=== PATIENT | male | born 1975 | race Caucasian/White ===

== ENCOUNTER 2016-08-01 20:36 | Inpatient (IN) | payer MEDICAID, OTHER ==
[~2016-08-01] VITALS: Ht 167.6 cm; Wt 82.5 kg
[2016-08-01] MEDS ORDERED: SOD CHLORIDE 0.9% 500 ML IV STA (22:11)
[2016-08-01] MEDS ORDERED: morphine 4 MG/ML VIAL IV STA ×2 (22:11→22:30)
[2016-08-01] MEDS ORDERED: ONDANSETRON 4 MG INJ IV STA ×2 (22:11→22:30)
[2016-08-01 23:12] LABS: ADD SCAN DIFF NO
[2016-08-01 23:23] LABS: BASOPHILS % 0.3 % (0.0-2.0); EOSINOPHILS # 0.1 10^3/ul (0.0-0.5); EOSINOPHILS % 1.5 % (0.0-7.0); HEMATOCRIT 39.4 % (42.0-52.0); HEMOGLOBIN 13.1 g/dl (14.0-18.0); LYMPHOCYTES # 2.2 10^3/ul (0.8-2.9); LYMPHOCYTES % 24.9 % (15.0-51.0); MEAN CORPUSCULAR HEMOGLOBIN 28.3 pg (29.0-33.0); MEAN CORPUSCULAR HGB CONC 33.2 g/dl (32.0-37.0); MEAN CORPUSCULAR VOLUME 85.1 fl (82.0-101.0); MONOCYTE # 1.2 10^3/ul (0.3-0.9); MONOCYTES % 13.4 % (0.0-11.0); NEUTROPHIL # 5.1 10^3/ul (1.6-7.5); NEUTROPHILS % 59.4 % (39.0-77.0); PLATELET COUNT 289 10^3/UL (140-415); RED BLOOD COUNT 4.63 10^6/ul (4.70-6.10); RED CELL DISTRIBUTION WIDTH 12.7 % (11.5-14.5); WHITE BLOOD COUNT 8.7 10^3/ul (4.8-10.8)
--- NOTE | 2016-08-01 23:25 | RADRPT ---
PROCEDURE: CT ABDOMEN/PELVIS WITHOUT CONTRAST CLINICAL INDICATION: 41-year-old male with abdominal pain. TECHNIQUE: The study was performed utilizing a GE Whitepagespeed VCT 64-slice CT scanner. Direct axia l sections were obtained through the abdomen and pelvis without the use of intravenous contrast mate rial. Sagittal and coronal reformations were obtained. Automated exposure control and iterative geoffrey nstruction techniques were utilized for this examination. The [facility] CTD/vol = 11.5 mGy; Total Exam DLP = 717.0 mGy-cm. COMPARISON: None. FINDINGS: There is mild scarring within the partially visualized right middle lobe. There is no evidence for significant pleural effusion. The liver has a normal size and contour without focal areas of abnorm al density. No intrahepatic nor extrahepatic biliary ductal dilatation is seen. The gallbladder demo nstrates no wall thickening nor pericholecystic fluid. No biliary stones are evident. The pancreas i s without areas of abnormal attenuation. The spleen is identified and has a normal size without abn ormal density. The adrenal glands are unremarkable. The kidneys are without abnormal density. No hyd roureteronephrosis nor nephroureterolithiasis is evident. The urinary bladder contains urine. There are a few small diverticula within the descending and sigmoid colon without surrounding inflammatory changes. The appendix is visualized and is without abnormal thickening or surrounding inflammatory reaction. There is no significant pelvic free fluid. There is a right pelvic phlebolith noted. There is an enlarged right inguinal soft tissue density measuring approximately 3.9 x 3.6 x 3.5 cm w ith surrounding inflammatory changes. There are additional multiple shotty bilateral inguinal lymph nodes noted. The aortoiliac vessels are without aneurysmal dilatation. The osseous structures are i ntact. IMPRESSION: 1. Minimal descending and sigmoid colon diverticulosis. 2. No CT evidence for appendicitis. 3. Enlarged right inguinal soft tissue density with surrounding inflammatory changes. This is most suggestive of lymphadenopathy. Clinical correlation is necessary. .Ever Stevenson MD, MD Date Time Electronically viewed and signed by .Ever Stevenson MD, MD on 08/01/2016 23:24 .M/
[2016-08-01 23:26] LABS: INR 0.94; PROTIME 12.6 Sec (12.2-14.2)
[2016-08-01 23:27] LABS: ALBUMIN 3.7 g/dl (3.3-4.9); POTASSIUM 4.2 mmol/L (3.5-5.1)
[2016-08-01 23:29] LABS: ALBUMIN/GLOBULIN RATIO 1.08; BILIRUBIN,INDIRECT 0.1 mg/dl (0-1.1); BILIRUBIN,TOTAL 0.1 mg/dl (0.2-1.3); CREATININE 1.17 mg/dl (0.61-1.24); TOTAL PROTEIN 7.1 g/dl (6.1-8.1)
[2016-08-02 00:30] VITALS: TEMP 99.8
--- NOTE | 2016-08-02 00:46 | ERD ---
ER Documentation Chief Complaint Date/Time DATE: 08/02/16 TIME: 00:45 Chief Complaint DX RT GROIN HERNIA AT [place]. NEEDS EVAL FOR SURGERY HPI This is a 41-year-old male with a right groin hernia that is not progressively more painful. Also, the mild fever. No other current complaints. Pain is mild to moderate intensity. Associated nausea. No vomiting. ROS All systems reviewed and are negative except as per history of present illness. PMhx/Soc Medical and Surgical Hx: pt denies Medical Hx, pt denies Surgical Hx Hx Alcohol Use: No Hx Substance Use: No Hx Tobacco Use: No Smoking Status: Never smoker Physical Exam Vitals Vital Signs Date Time Temp Pulse Resp B/P Pulse Ox O2 Delivery O2 Flow Rate FiO2 08/02/16 00:30 99.8 80 18 126/74 99 Room Air 08/01/16 23:13 99.8 81 18 112/65 99 Room Air 08/01/16 20:45 100.4 97 18 137/83 99 Physical Exam Const: [] Head: Atraumatic Eyes: Normal Conjunctiva ENT: Normal External Ears, Nose and Mouth. Neck: Full range of motion..~ No meningismus. Resp: Clear to auscultation bilaterally Cardio: Regular rate and rhythm, no murmurs Abd: Soft, non tender, non distended. Normal bowel sounds Skin: No petechiae or rashes Back: No midline or flank tenderness Ext: No cyanosis, or edema Neur: Awake and alert Psych: Normal Mood and Affect Result Diagram: 08/01/16223308/01/162233 Results 24 hrs Laboratory Tests Test 08/01/16 22:34 Activated Partial Thromboplast Time 34.0Sec Alanine Aminotransferase (ALT/SGPT) 47IU/L Albumin 3.7g/dl Albumin/Globulin Ratio 1.08 Alkaline Phosphatase 83IU/L Anion Gap 15 Aspartate Amino Transf (AST/SGOT) 34IU/L Basophils # 0.010^3/ul Basophils % 0.3% Blood Urea Nitrogen 18mg/dl Calcium Level 9.0mg/dl Carbon Dioxide Level 30mmol/L Chloride Level 101mmol/L Creatinine 1.17mg/dl Direct Bilirubin 0.00mg/dl Eosinophils # 0.110^3/ul Eosinophils % 1.5% Globulin 3.40g/dl Glucose Level 93mg/dl Hematocrit 39.4% Hemoglobin 13.1g/dl INR International Normalized Ratio 0.94 Indirect Bilirubin 0.1mg/dl Lipase 58U/L Lymphocytes # 2.210^3/ul Lymphocytes % 24.9% Mean Corpuscular Hemoglobin 28.3pg Mean Corpuscular Hemoglobin Concent 33.2g/dl Mean Corpuscular Volume 85.1fl Mean Platelet Volume 9.0fl Monocytes # 1.210^3/ul Monocytes % 13.4% Neutrophils # 5.110^3/ul Neutrophils % 59.4% Nucleated Red Blood Cells # 0.010^3/ul Nucleated Red Blood Cells % 0.0/100WBC Platelet Count 93375^3/UL Potassium Level 4.2mmol/L Prothrombin Time 12.6Sec Prothrombin Time Ratio 1.0 Red Blood Count 4.6310^6/ul Red Cell Distribution Width 12.7% Sodium Level 142mmol/L Total Bilirubin 0.1mg/dl Total Protein 7.1g/dl White Blood Count 8.710^3/ul Current Medications Medications (Trade) Dose Ordered Sig/Anastasiya Route PRN Reason Start Time Stop Time Status Last Admin Dose Admin Sodium Chloride (NS) 500 ml @ 500 mls/hr Q1H STAT IV 08/01/16 22:11 08/01/16 23:10 DC 08/01/16 22:40 Morphine Sulfate (morphine) 4 mg ONCE STAT IV 08/01/16 22:11 08/01/16 22:13 DC 08/01/16 22:39 Ondansetron HCl (Zofran Inj) 4 mg ONCE STAT IV 08/01/16 22:11 08/01/16 22:13 DC 08/01/16 22:39 Morphine Sulfate (morphine) 4 mg ONCE STAT IV 08/01/16 22:30 08/01/16 22:31 DC Ondansetron HCl (Zofran Inj) 4 mg ONCE STAT IV 08/01/16 22:30 08/01/16 22:31 DC Procedures/MDM Medical decision-making: Patient as well as be early incarcerated inguinal hernia likely omentum. Patient will be admitted to hospitalist. Dr. Abdalla from surgery will consult. Departure Diagnosis: Primary Impression: Incarcerated inguinal hernia Condition: Serious AJIT CARTWRIGHT Aug 02, 2016 00:46
[2016-08-02 01:01] VITALS: Ht 167.6 cm; Wt 82.5 kg
[2016-08-02 01:12] VITALS: BP 139/76; PULSE 92; RESP 18
--- NOTE | 2016-08-02 01:23 | HP ---
Date/Time of Note Date/Time of Note DATE: 08/02/16 TIME: 01:22 Assessment/Plan VTE Prophylaxis VTE Prophylaxis Intervention: ambulation Lines/Catheters IV [facility] Saline Lock Urinary Cath still in place: No Assessment/Plan Assessment/Plan 1) Right Inguinal Mass - Diagnosed as an Incarcerated Inguinal Hernia, but may be an enlarged lymph node instead. Consider a infection as well as an incarcerated hernia. - Admit to Med Surg - NPO - CONSULT: General Surgery. Dr. Abdalla already notified by the ER - Add on Labs: UA, Urine Culture, GC/Chlamydia from Urine 2) Fever and Chills 3) Dysuria HPI/ROS Admit Date/Time Admit Date/Time Aug 02, 2016 at 00:22 Hx of Present Illness Hernia ROS Patient presented to the ED with a diagnosis of a right inguinal hernia made at [facility] on 07/27/16. They did not have a surgeon, so it seems they recommend he come here for treatment. Tonight, he had a CT of abdomen and pelvis and some blood work was done. Dr. Abdalla was consulted from the ED and he will see patient this morning. I saw patient for my H & P, and confirmed he had a tender mass in his right inguinal region. I submitted my orders and then looked at the CT report to include it in my note. The report does not mention evidence of a hernia. It mentions an enlarged right inguinal soft tissue density measuring approximately 3.9 x 3.6 x 3.5 cm with surrounding inflammatory changes and shotty bilateral inguinal lymphadenopathy . . . "most suggestive of lymphadenopathy". In my original visit with the patient, I asked if he had been sick recently, and he said "no". He didn't have any complaints other than the painful lump in the right groin, mild nausea with the pain and some general abdominal tenderness ( see PE for details) on my exam. With this new information, I went back and asked more questions and did a more thorough exam. Patient has been having this lump for 2 months. It has become painful over the past 2 weeks. In the last week, he has had shaking fevers and chills, Headache, nausea and moderate to severe body aches. He has also had burning with urination this week. He has not seen any blood. No penile lesions or urethral discharge. No pain in his testicles. No new sexual partner, only his . He felt so bad on 07/31/16, that he did not go to work. Patient denies ever having an STI. Constitutional: chills, fatigue (Extremely tired since 07/31/16), febrile Eyes: no complaints ENT: no complaints Respiratory: no complaints Cardiovascular: no complaints Gastrointestinal: decreased appetite, nausea, No diarrhea, No vomiting Genitourinary: dysuria, No discharge, No flank pain, No hematuria Musculoskeletal: No back pain, No neck pain Skin: No pruritis, No rash, No skin lesions Neurologic: headache, No dizziness, No focal-weakness, No syncope Endocrine: No polydypsia, No polyuria Immunologic: No immunodeficiency, No pruritis, No rhinitis PMH/Family/Social Past Medical History Medical History: no pertinent history Past Surgical History Past Surgical Hx: no surgical history Family History Significant Family History: no pertinent family hx Social History Alcohol Use: none Smoking Status: Never smoker Drug Use: none Exam/Review of Systems Vital Signs Vitals Vital Signs Date Time Temp Pulse Resp B/P Pulse Ox O2 Delivery O2 Flow Rate FiO2 08/02/16 01:12 98.3 92 18 139/76 98 Room Air Exam Constitutional: alert, oriented, well developed Psych: no complaints Head: atraumatic, normocephalic Eyes: EOMI, nl sclera ENMT: mucosa pink and moist, nl external ears & nose, nl lips & teeth Neck: non-tender, supple Respiratory: clear to auscultation, normal air movement Cardiovascular: regular rate and rhythm Gastrointestinal: bowel sounds (Normoactive), nl liver, spleen, other (No CVA tenderness), soft, tender (May be related to the pain/tenderness in Right Groin region.), No distended, No firm, No hepatomegaly, No rebound or guarding Genitourinary - Male: nl penis, nl scrotum, other (Thestes normal cord palpated and followed to inguinal ring. Patient coughed), No discharge Musculoskeletal: muscle tone (Normal), nl extremities to inspection Extremities: normal pulses, No edema Neurological: CROSSING TENDER II-XII intact (grossly), nl mental status, nl speech, nl strength Skin: nl turgor (Normal moisture and temperature. No rash.) Lymph: enlarged (Right inguinal lymphadenopathy, very tender. ) Labs Result Diagram: 08/01/16223308/01/162233 Procedures Procedures Laboratory Tests Test 08/01/16 22:34 Activated Partial Thromboplast Time 34.0Sec Alanine Aminotransferase (ALT/SGPT) 47IU/L Albumin 3.7g/dl Albumin/Globulin Ratio 1.08 Alkaline Phosphatase 83IU/L Anion Gap 15 Aspartate Amino Transf (AST/SGOT) 34IU/L Basophils # 0.010^3/ul Basophils % 0.3% Blood Urea Nitrogen 18mg/dl Calcium Level 9.0mg/dl Carbon Dioxide Level 30mmol/L Chloride Level 101mmol/L Creatinine 1.17mg/dl Direct Bilirubin 0.00mg/dl Eosinophils # 0.110^3/ul Eosinophils % 1.5% Globulin 3.40g/dl Glucose Level 93mg/dl Hematocrit 39.4% Hemoglobin 13.1g/dl INR International Normalized Ratio 0.94 Indirect Bilirubin 0.1mg/dl Lipase 58U/L Lymphocytes # 2.210^3/ul Lymphocytes % 24.9% Mean Corpuscular Hemoglobin 28.3pg Mean Corpuscular Hemoglobin Concent 33.2g/dl Mean Corpuscular Volume 85.1fl Mean Platelet Volume 9.0fl Monocytes # 1.210^3/ul Monocytes % 13.4% Neutrophils # 5.110^3/ul Neutrophils % 59.4% Nucleated Red Blood Cells # 0.010^3/ul Nucleated Red Blood Cells % 0.0/100WBC Platelet Count 96247^3/UL Potassium Level 4.2mmol/L Prothrombin Time 12.6Sec Prothrombin Time Ratio 1.0 Red Blood Count 4.6310^6/ul Red Cell Distribution Width 12.7% Sodium Level 142mmol/L Total Bilirubin 0.1mg/dl Total Protein 7.1g/dl White Blood Count 8.710^3/ul PROCEDURE: CT ABDOMEN/PELVIS WITHOUT CONTRAST CLINICAL INDICATION: 41-year-old male with abdominal pain. COMPARISON: None. FINDINGS: There is mild scarring within the partially visualized right middle lobe. There is no evidence for significant pleural effusion. The liver has a normal size and contour without focal areas of abnormal density. No intrahepatic nor extrahepatic biliary ductal dilatation is seen. The gallbladder demonstrates no wall thickening nor pericholecystic fluid. No biliary stones are evident. The pancreas is without areas of abnormal attenuation. The spleen is identified and has a normal size without abnormal density. The adrenal glands are unremarkable. The kidneys are without abnormal density. No hydroureteronephrosis nor nephroureterolithiasis is evident. The urinary bladder contains urine. There are a few small diverticula within the descending and sigmoid colon without surrounding inflammatory changes. The appendix is visualized and is without abnormal thickening or surrounding inflammatory reaction. There is no significant pelvic free fluid. There is a right pelvic phlebolith noted. There is an enlarged right inguinal soft tissue density measuring approximately 3.9 x 3.6 x 3.5 cm with surrounding inflammatory changes. There are additional multiple shotty bilateral inguinal lymph nodes noted. The aortoiliac vessels are without aneurysmal dilatation. The osseous structures are intact. IMPRESSION: 1. Minimal descending and sigmoid colon diverticulosis. 2. No CT evidence for appendicitis. 3. Enlarged right inguinal soft tissue density with surrounding inflammatory changes. This is most suggestive of lymphadenopathy. Clinical correlation is necessary. DOMINIC MARTINEZ DO Aug 02, 2016 01:22
[2016-08-02] MEDS ORDERED: NACL 0.9% 3 ML SYG IV SCH (01:30)
[2016-08-02] MEDS ORDERED: ONDANSETRON 4 MG INJ IV PRN (01:30)
[2016-08-02] MEDS: morphine 2 MG INJ IV PRN ×2 (01:53→20:59)
[2016-08-02] MEDS: SOD CHLORIDE 0.9% 1,000 ML IV SCH ×3 (01:54→14:58)
[2016-08-02 02:00] VITALS: BP 139/76; RESP 20
[2016-08-02 07:17] VITALS: BP 126/71; RESP 20
[2016-08-02 07:32] LABS: ADD UMIC NO; URINE BILIRUBIN (Dip) NEGATIVE (NEGATIVE); URINE BLOOD (Dip) NEGATIVE (NEGATIVE); URINE COLOR LT. YELLOW (YELLOW); URINE GLUCOSE (Dip) NEGATIVE (NEGATIVE); URINE KETONES (Dip) NEGATIVE (NEGATIVE); URINE LEUKOCYTE ESTERASE (Dip) NEGATIVE (NEGATIVE); URINE NITRITE (Dip) NEGATIVE (NEGATIVE); URINE TOTAL PROTEIN (Dip) NEGATIVE (NEGATIVE); URINE UROBILINOGEN (Dip) 0.2 E.U./dL (0.1-1.0)
[2016-08-02 19:31] VITALS: BP 131/81; RESP 16
[2016-08-03] MEDS: SOD CHLORIDE 0.9% 1,000 ML IV SCH ×4 (00:57→23:37)
[2016-08-03 06:10] LABS: ADD SCAN DIFF NO
[2016-08-03 06:32] LABS: BASOPHILS % 0.4 % (0.0-2.0); EOSINOPHILS # 0.1 10^3/ul (0.0-0.5); EOSINOPHILS % 1.1 % (0.0-7.0); HEMATOCRIT 38.5 % (42.0-52.0); HEMOGLOBIN 12.7 g/dl (14.0-18.0); LYMPHOCYTES % 20.5 % (15.0-51.0); MEAN CORPUSCULAR HEMOGLOBIN 28.3 pg (29.0-33.0); MEAN CORPUSCULAR VOLUME 85.7 fl (82.0-101.0); MEAN PLATELET VOLUME 8.8 fl (7.4-10.4); MONOCYTE # 1.2 10^3/ul (0.3-0.9); MONOCYTES % 12.3 % (0.0-11.0); NEUTROPHIL # 6.5 10^3/ul (1.6-7.5); NEUTROPHILS % 65.3 % (39.0-77.0); PLATELET COUNT 288 10^3/UL (140-415); RED BLOOD COUNT 4.49 10^6/ul (4.70-6.10); RED CELL DISTRIBUTION WIDTH 12.4 % (11.5-14.5)
[2016-08-03 06:37] LABS: POTASSIUM 4.3 mmol/L (3.5-5.1)
[2016-08-03 06:39] LABS: CREATININE 0.88 mg/dl (0.61-1.24)
[2016-08-03 06:40] LABS: CALCIUM 8.5 mg/dl (8.4-10.2); MAGNESIUM 2.3 mg/dl (1.7-2.5)
[2016-08-03 07:15] VITALS: BP 133/72; RESP 20
[2016-08-03] MEDS: ACETAMINOPHEN 325 MG TAB PO PRN ×2 (13:22→22:23)
[2016-08-03] MEDS ORDERED: LIDOCAINE 1% (MPF) 5 ML VIAL ONE (14:24)
--- NOTE | 2016-08-03 15:37 | RADRPT ---
PROCEDURE: Ultrasound guided right inguinal lymph node biopsy. CLINICAL INDICATION: Enlarged right inguinal lymph node. TECHNIQUE: Prior to the procedure, informed consent was obtained. Risks including bleeding and in fection were explained to the patient. The patient understood and was willing to proceed. A proced ural pause was performed. The patient's name, date of , and procedure to be performed were fani ified. Using local anesthetic, sterile technique and ultrasound guidance, an 18-gauge automated core biopsy needle was used to biopsy the mass in the right inguinal region. Multiple passes were made. Adequ ate tissue was obtained according to the pathologist present during the biopsy. The patient tolerat ed the procedure well. COMPARISON: CT scan of the abdomen and pelvis dated 08/01/2016 which demonstrated an enlarged lymp h node in the right inguinal region. FINDINGS: Images demonstrate the right inguinal lymphadenopathy and subsequent images demonstrate the needle w ithin the mass in the right inguinal region. IMPRESSION: 1. Satisfactory ultrasound-guided right inguinal lymph node biopsy. RPTAT: QQ .Lawson Bernardo MD, MD Date Time Electronically viewed and signed by .Lawson Bernardo MD, on 08/03/2016 15:37 .R/
--- NOTE | 2016-08-03 16:45 | PN ---
Date/Time of Note Date/Time of Note DATE: 08/03/16 TIME: 16:41 Assessment/Plan VTE Prophylaxis VTE Prophylaxis Intervention: ambulation Lines/Catheters IV [facility]ter Type (from [facility]): Peripheral IV Urinary Cath still in place: No Assessment/Plan Chief Complaint/Hosp Course 1) Right Inguinal Mass Surgery does not feel that the mass is a hernia and has recommended biopsy for evaluation of lymphoma, patient is status post ultrasound guided biopsy today 2) Fever and Chills Patient is afebrile today 3) Dysuria UA is negative, RPR is nonreactive Prophylaxis: Ambulation Problems: Subjective 24 Hr Interval Summary Constitutional: no complaints Exam/Review of Systems Vital Signs Vitals Vital Signs Date Time Temp Pulse Resp B/P Pulse Ox O2 Delivery O2 Flow Rate FiO2 08/03/16 07:15 98.0 91 20 133/72 99 08/02/16 01:12 Room Air Intake and Output 08/02/16 08/02/16 08/03/16 15:00 23:00 07:00 Intake Total 600 ml 200 ml 1200 ml Output Total 1950 ml 1850 ml Balance 600 ml -1750 ml -650 ml Exam Constitutional: alert, oriented Respiratory: clear to auscultation Cardiovascular: regular rate and rhythm Gastrointestinal: soft, No distended Musculoskeletal: nl extremities to inspection Results Result Diagram: 08/03/16 0535 08/03/16 0535 Results 24 hrs Laboratory Tests Test 08/03/16 05:35 Anion Gap 15 Basophils # 0.0 Basophils % 0.4 Blood Urea Nitrogen 14 Calcium Level 8.5 Carbon Dioxide Level 28 Chloride Level 104 Creatinine 0.88 Eosinophils # 0.1 Eosinophils % 1.1 Glucose Level 96 Hematocrit 38.5 L Hemoglobin 12.7 L Hemoglobin A1c 5.8 Lymphocytes # 2.0 Lymphocytes % 20.5 Magnesium Level 2.3 Mean Corpuscular Hemoglobin 28.3 L Mean Corpuscular Hemoglobin Concent 33.0 Mean Corpuscular Volume 85.7 Mean Platelet Volume 8.8 Monocytes # 1.2 H Monocytes % 12.3 H Neutrophils # 6.5 Neutrophils % 65.3 Nucleated Red Blood Cells # 0.0 Nucleated Red Blood Cells % 0.0 Platelet Count 288 Potassium Level 4.3 Red Blood Count 4.49 L Red Cell Distribution Width 12.4 Sodium Level 143 White Blood Count 10.0 Medications Medications Current Medications Sodium Chloride (NS) 1,000 ml @ 100 mls/hr Q10H IV Last administered on 12:36; Admin Dose 100 MLS/HR; Start 08/02/16 at 01:23 Ondansetron HCl (Zofran Inj) 4 mg Q6H PRN IV NAUSEA AND/OR VOMITING; Start at 01:30 Morphine Sulfate (morphine) 2 mg Q4H PRN IV SEVERE PAIN LEVEL 7-10 Last administered on 08/02/16 20:59; Admin Dose 2 MG; Start 08/02/16 at 01:30 Acetaminophen (Tylenol Tab) 650 mg Q6H PRN PO PAIN AND OR ELEVATED TEMP Last administered on 08/03/16 13:22; Admin Dose 650 MG; Start 08/03/16 at 11:00 ANTONIO WONG Aug 03, 2016 16:45
[2016-08-03 19:00] VITALS: BP 117/79; RESP 18
[2016-08-03] MEDS: morphine 2 MG INJ IV PRN (19:08)
[2016-08-03] MEDS: HYDROCODONE/APAP (5/325) TAB PO PRN (23:32)
[2016-08-04] MEDS: HYDROCODONE/APAP (5/325) TAB PO PRN ×3 (05:20→21:46)
[2016-08-04 07:51] VITALS: BP 116/71; RESP 18
[2016-08-04] MEDS: SOD CHLORIDE 0.9% 1,000 ML IV SCH ×3 (09:45→21:46)
--- NOTE | 2016-08-04 14:58 | PN ---
Date/Time of Note Date/Time of Note DATE: 08/04/16 TIME: 14:56 Assessment/Plan VTE Prophylaxis VTE Prophylaxis Intervention: ambulation Lines/Catheters IV [facility] Peripheral IV Urinary Cath still in place: No Assessment/Plan Chief Complaint/Hosp Course 1) Right Inguinal Mass Surgery does not feel that the mass is a hernia and has recommended biopsy for evaluation of lymphoma, patient is status post ultrasound guided biopsy yesterday Oncology consultation placed 2) Fever and Chills-resolved Patient is afebrile today 3) Dysuria UA is negative, RPR is nonreactive Prophylaxis: Ambulation Problems: Subjective 24 Hr Interval Summary Constitutional: no complaints Exam/Review of Systems Vital Signs Vitals Vital Signs Date Time Temp Pulse Resp B/P Pulse Ox O2 Delivery O2 Flow Rate FiO2 08/04/16 07:51 98.8 82 18 116/71 100 08/02/16 01:12 Room Air Intake and Output 08/03/16 08/03/16 08/04/16 15:00 23:00 07:00 Intake Total 1000 ml 1250 ml 1770 ml Output Total 1125 ml 140 ml Balance 1000 ml 125 ml 1630 ml Exam Constitutional: alert Respiratory: clear to auscultation Cardiovascular: regular rate and rhythm Gastrointestinal: soft, No distended Musculoskeletal: nl extremities to inspection Results Result Diagram: 08/03/16 0535 08/03/16 0535 Medications Medications Current Medications Sodium Chloride (NS) 1,000 ml @ 100 mls/hr Q10H IV Last administered on 09:45; Admin Dose 100 MLS/HR; Start 08/02/16 at 01:23 Ondansetron HCl (Zofran Inj) 4 mg Q6H PRN IV NAUSEA AND/OR VOMITING; Start at 01:30 Morphine Sulfate (morphine) 2 mg Q4H PRN IV SEVERE PAIN LEVEL 7-10 Last administered on 08/03/16 19:08; Admin Dose 2 MG; Start 08/02/16 at 01:30 Acetaminophen (Tylenol Tab) 650 mg Q6H PRN PO PAIN AND OR ELEVATED TEMP Last administered on 08/03/16 22:23; Admin Dose 650 MG; Start 08/03/16 at 11:00 Acetaminophen/ Hydrocodone Bitart ([place] (5/325)) 1 tab Q6H PRN PO MODERATE PAIN (4-6/10) Last administered on 08/04/16t 12:28; Admin Dose 1 TAB; Start at 23:30 ANTONIO WONG Aug 04, 2016 14:58
--- NOTE | 2016-08-04 15:06 | CONS ---
Date/Time of Note Date/Time of Note DATE: 08/04/16 TIME: 14:58 Assessment/Plan Assessment/Plan Chief Complaint/Hosp Course The patient is a 41 year old male with enlarged right inguinal soft tissue density with inflammatory changes suggesting LAD, now s/p US guided core biopsy of right inguinal lymph node on 08/03/16 with results pending. - f/u final path, pending, will likely have some results tomorrow - will check LDH, uric acid, HIV, Hepatitis panel - will obtain CT chest, with outpatient PET scan - will f/u path and make recommendations regarding further workup (may include bone marrow biopsy, echo, etc) and treatment Will continue to follow Problems: Consultation Date/Type/Reason Admit Date/Time Aug 02, 2016 at 00:22 Date of Consultation: Aug 04, 2016 Type of Consultation: Hematology/Oncology Hx of Present Illness The patient is a 41 year old male who presented to the ED with a diagnosis of a right inguinal hernia made at [facility] [place] on 07/27/16. They did not have a surgeon, so it seems they recommend he come here for treatment. Here he had a CT of abdomen and pelvis that showed enlarged right inguinal soft tissue density with inflammatory changes suggesting LAD, now s/p US guided core biopsy of right inguinal lymph node on 08/03/16 with results pending. Patient has been having this lump for 2 months. It has become painful over the past 2 weeks. In the last week, he has had shaking fevers and chills, headache/ back ache, nausea and moderate to severe body aches and dysuria. He endorses fevers and night sweats, unknown whether he has had weight loss. He states that he is still able to ambulate at home and perform his ADL's. Constitutional: no complaints Eyes: no complaints ENT: no complaints Respiratory: no complaints Cardiovascular: no complaints Gastrointestinal: decreased appetite, nausea, No diarrhea, No vomiting Genitourinary: dysuria, No discharge, No flank pain, No hematuria Musculoskeletal: No back pain, No neck pain Skin: No pruritis, No rash, No skin lesions Neurologic: headache, No dizziness, No focal-weakness, No syncope Psychological: no complaints Immunologic: No immunodeficiency, No pruritis, No rhinitis Past Medical History Medical History: no pertinent history Past Surgical History Past Surgical Hx: no surgical history Family History Significant Family History: no pertinent family hx Social History Alcohol Use: none Smoking Status: Never smoker Drug Use: none Exam/Review of Systems Vital Signs Vitals Vital Signs Date Time Temp Pulse Resp B/P Pulse Ox O2 Delivery O2 Flow Rate FiO2 08/04/16 07:51 98.8 82 18 116/71 100 08/02/16 01:12 Room Air Intake and Output 08/03/16 08/03/16 08/04/16 15:00 23:00 07:00 Intake Total 1000 ml 1250 ml 1770 ml Output Total 1125 ml 140 ml Balance 1000 ml 125 ml 1630 ml Exam Constitutional: alert, oriented Psych: other (diaphoretic) Head: normocephalic Neck: supple Respiratory: clear to auscultation Cardiovascular: regular rate and rhythm Gastrointestinal: non-tender, soft Musculoskeletal: nl extremities to inspection Neurological: JACK TAMP OPERATOR II-XII intact Lymph: enlarged (large 3 x 4 cm painful inguinal lymph node, no other palpable LAD) Results Result Diagram: 08/03/16 0535 08/03/16 0535 Medications Medications Current Medications Sodium Chloride (NS) 1,000 ml @ 100 mls/hr Q10H IV Last administered on 09:45; Admin Dose 100 MLS/HR; Start 08/02/16 at 01:23 Ondansetron HCl (Zofran Inj) 4 mg Q6H PRN IV NAUSEA AND/OR VOMITING; Start at 01:30 Morphine Sulfate (morphine) 2 mg Q4H PRN IV SEVERE PAIN LEVEL 7-10 Last administered on 08/03/16 19:08; Admin Dose 2 MG; Start 08/02/16 at 01:30 Acetaminophen (Tylenol Tab) 650 mg Q6H PRN PO PAIN AND OR ELEVATED TEMP Last administered on 08/03/16 22:23; Admin Dose 650 MG; Start 08/03/16 at 11:00 Acetaminophen/ Hydrocodone Bitart ([place] (5/325)) 1 tab Q6H PRN PO MODERATE PAIN (4-6/10) Last administered on 08/04/16 12:28; Admin Dose 1 TAB; Start at 23:30 DAKOTAH PRIDE MD Aug 04, 2016 15:06
[2016-08-04] MEDS: ACETAMINOPHEN 325 MG TAB PO PRN (17:26)
[2016-08-04 19:46] VITALS: BP 125/73; RESP 18
[2016-08-05] MEDS: ACETAMINOPHEN 325 MG TAB PO PRN ×4 (00:27→19:41)
[2016-08-05] MEDS: SOD CHLORIDE 0.9% 1,000 ML IV SCH ×2 (05:39→15:45)
[2016-08-05 05:43] LABS: ADD SCAN DIFF NO; HAAIG REFLEX REFLEX FILED
[2016-08-05 05:52] LABS: BASOPHILS % 0.2 % (0.0-2.0); EOSINOPHILS # 0.2 10^3/ul (0.0-0.5); EOSINOPHILS % 1.8 % (0.0-7.0); HEMATOCRIT 37.9 % (42.0-52.0); HEMOGLOBIN 12.7 g/dl (14.0-18.0); LYMPHOCYTES # 1.8 10^3/ul (0.8-2.9); LYMPHOCYTES % 19.9 % (15.0-51.0); MEAN CORPUSCULAR HEMOGLOBIN 28.2 pg (29.0-33.0); MEAN CORPUSCULAR HGB CONC 33.5 g/dl (32.0-37.0); MEAN CORPUSCULAR VOLUME 84.2 fl (82.0-101.0); MEAN PLATELET VOLUME 8.5 fl (7.4-10.4); MONOCYTE # 1.1 10^3/ul (0.3-0.9); MONOCYTES % 12.6 % (0.0-11.0); NEUTROPHIL # 5.7 10^3/ul (1.6-7.5); PLATELET COUNT 327 10^3/UL (140-415); RED CELL DISTRIBUTION WIDTH 12.1 % (11.5-14.5); WHITE BLOOD COUNT 8.8 10^3/ul (4.8-10.8)
[2016-08-05 05:58] LABS: ALBUMIN 3.3 g/dl (3.3-4.9)
[2016-08-05 05:59] LABS: POTASSIUM 4.2 mmol/L (3.5-5.1)
[2016-08-05 06:01] LABS: ALBUMIN/GLOBULIN RATIO 0.94; BILIRUBIN,INDIRECT 0.1 mg/dl (0-1.1); BILIRUBIN,TOTAL 0.1 mg/dl (0.2-1.3); CREATININE 0.81 mg/dl (0.61-1.24); TOTAL PROTEIN 6.8 g/dl (6.1-8.1)
[2016-08-05 06:02] LABS: CALCIUM 8.5 mg/dl (8.4-10.2); PHOSPHORUS 4.3 mg/dl (2.5-4.9); URIC ACID 4.3 mg/dl (3.1-7.9)
[2016-08-05 07:10] LABS: HEPATITIS B CORE ANTIBODY NEGATIVE (NEGATIVE)
[2016-08-05 07:30] VITALS: BP 122/74; RESP 24
--- NOTE | 2016-08-05 09:17 | RADRPT ---
PROCEDURE: CT chest without contrast. CLINICAL INDICATION: Cough, chest pain TECHNIQUE: CT scan of the chest without contrast was performed on a multi-slice CT scanner. The p atient was scanned without administration of intravenous contrast. Coronal and sagittal reformatted images were obtained from the axial source images. DLP vol 536.2 mGy CTDI 15.3 mGy-cm COMPARISON: None. FINDINGS: There is a mildly enlarged left axillary lymph node that measures up to 3.5 x 1.0 cm in diameter wit h the visible fatty hilar component. There may lymph nodes within the thorax demonstrate no signifi cant thickening or enlargement. Trace bilateral subpleural scarring is seen in the lungs. There is no lung consolidation or pleural effusion or pneumothorax. The airways are patent. There is a 4 mm left lower lobe pulmonary nodul e on series 4, image 91. The vascular structures of the thorax are grossly unremarkable. There are no enlarged axillary or me diastinal lymph nodes. Upper abdominal structures are stable from prior CT would hepatosplenomegaly partially visualized. D egenerative changes are seen within the thoracic spine and shoulders with no acute osseous abnormali ty. IMPRESSION: Mildly enlarged left axillary lymph node is seen with no other enlarged lymph nodes in the thorax. Left lower lobe 4 mm pulmonary nodule can be reassessed with followup CT after 6 months. Otherwise no acute pulmonary process. Hepatosplenomegaly. RPTAT: AA .Junior Basilio MD, MD Date Time Electronically viewed and signed by .Junior Basilio MD, MD on 08/05/2016 09:17 .Richard/
--- NOTE | 2016-08-05 15:24 | PN ---
Date/Time of Note Date/Time of Note DATE: 08/05/16 TIME: 15:20 Assessment/Plan VTE Prophylaxis VTE Prophylaxis Intervention: ambulation Lines/Catheters IV Catheter Type (from [facility]): Peripheral IV Urinary Cath still in place: No Assessment/Plan Chief Complaint/Hosp Course 1) Right Inguinal Mass Surgery does not feel that the mass is a hernia and has recommended biopsy for evaluation of lymphoma, patient is status post ultrasound guided biopsy, follow- up on pathology Oncology consultation appreciated CT chest shows a mildly enlarged left axillary lymph node 2) Fever and Chills possibly secondary to an underlying lymphoma, there is no evidence of an infection at this time Patient was having low-grade fevers overnight 3) Dysuria UA is negative, RPR is nonreactive Prophylaxis: Ambulation Problems: Subjective 24 Hr Interval Summary Constitutional: no complaints Exam/Review of Systems Vital Signs Vitals Vital Signs Date Time Temp Pulse Resp B/P Pulse Ox O2 Delivery O2 Flow Rate FiO2 08/05/16 09:30 98.7 08/05/16 07:30 86 24 122/74 98 08/02/16 01:12 Room Air Intake and Output 08/04/16 08/04/16 08/05/16 15:00 23:00 07:00 Intake Total 450 ml 2175 ml 1425 ml Output Total 1000 ml 1100 ml Balance 450 ml 1175 ml 325 ml Exam Constitutional: alert, oriented Respiratory: clear to auscultation Cardiovascular: regular rate and rhythm Gastrointestinal: soft, No distended Musculoskeletal: nl extremities to inspection Results Result Diagram: 08/05/16 0510 08/05/16 0510 Results 24 hrs Laboratory Tests Test 08/05/16 05:10 Alanine Aminotransferase (ALT/SGPT) 34 Albumin 3.3 Albumin/Globulin Ratio 0.94 Alkaline Phosphatase 74 Anion Gap 13 Aspartate Amino Transf (AST/SGOT) 22 Basophils # 0.0 Basophils % 0.2 Blood Urea Nitrogen 9 Calcium Level 8.5 Carbon Dioxide Level 29 Chloride Level 101 Creatinine 0.81 Direct Bilirubin 0.00 Eosinophils # 0.2 Eosinophils % 1.8 Globulin 3.50 H Glucose Level 101 HIV (1&2) Antibody NEGATIVE Hematocrit 37.9 L Hemoglobin 12.7 L Hepatitis B Core Total Antibody NEGATIVE Hepatitis B Surface Antigen NEGATIVE Hepatitis C Antibody NEGATIVE Indirect Bilirubin 0.1 Lactate Dehydrogenase 575 Lymphocytes # 1.8 Lymphocytes % 19.9 Mean Corpuscular Hemoglobin 28.2 L Mean Corpuscular Hemoglobin Concent 33.5 Mean Corpuscular Volume 84.2 Mean Platelet Volume 8.5 Monocytes # 1.1 H Monocytes % 12.6 H Neutrophils # 5.7 Neutrophils % 65.0 Nucleated Red Blood Cells # 0.0 Nucleated Red Blood Cells % 0.0 Phosphorus Level 4.3 Platelet Count 327 Potassium Level 4.2 Red Blood Count 4.50 L Red Cell Distribution Width 12.1 Sodium Level 139 Total Bilirubin 0.1 L Total Protein 6.8 Uric Acid 4.3 White Blood Count 8.8 Medications Medications Current Medications Sodium Chloride (NS) 1,000 ml @ 100 mls/hr Q10H IV Last administered on 05:39; Admin Dose 100 MLS/HR; Start 08/02/16 at 01:23 Ondansetron HCl (Zofran Inj) 4 mg Q6H PRN IV NAUSEA AND/OR VOMITING; Start at 01:30 Morphine Sulfate (morphine) 2 mg Q4H PRN IV SEVERE PAIN LEVEL 7-10 Last administered on 08/03/16 19:08; Admin Dose 2 MG; Start 08/02/16 at 01:30 Acetaminophen (Tylenol Tab) 650 mg Q6H PRN PO PAIN AND OR ELEVATED TEMP Last administered on 08/05/16 12:45; Admin Dose 650 MG; Start 08/03/16 at 11:00 Acetaminophen/ Hydrocodone Bitart ([place] (5/325)) 1 tab Q6H PRN PO MODERATE PAIN (4-6/10) Last administered on 08/04/16 21:46; Admin Dose 1 TAB; Start at 23:30 ANTONIO WONG Aug 05, 2016 15:23
--- NOTE | 2016-08-05 16:58 | CONS ---
Date/Time of Note Date/Time of Note DATE: 08/05/16 TIME: 16:55 Assessment/Plan Assessment/Plan Chief Complaint/Hosp Course The patient is a 41 year old male with enlarged right inguinal soft tissue density with inflammatory changes suggesting LAD, now s/p US guided core biopsy of right inguinal lymph node on 08/03/16 with results pending. - f/u final path, prelim path per Dr. Higuera was benign, with 1 poorly formed granuloma with necrosis with flow cytometry negative for immunophenotypic abnormality though paucicellular specimen, pending immunostains which will result tomorrow. No evidence of lymphoma at this time. - LDH normal at 575, uric acid 4.3, HIV and hepatitis negative - CT chest 08/04/16shows mildly enlarged left axillary lymph node that measures up to 3.5 x 1.0 cm in diameter with the visible fatty hilar component. There may lymph nodes within the thorax demonstrate no significant thickening or enlargement. Follow up LLL 4 mm pulmonary nodule in 6 months. - follow up final path, consider outpatient PET and/or repeat biopsy Will continue to follow Problems: Consultation Date/Type/Reason Admit Date/Time Aug 02, 2016 at 00:22 Initial Consult Date 08/04/16 Type of Consultation: Hematology/Oncology 24 HR Interval Summary Free Text/Dictation Patient states that he has chills but overall feels better today with less sweats, constipation and resolution of dysuria. Exam/Review of Systems Vital Signs Vitals Vital Signs Date Time Temp Pulse Resp B/P Pulse Ox O2 Delivery O2 Flow Rate FiO2 08/05/16 09:30 98.7 08/05/16 07:30 86 24 122/74 98 08/02/16 01:12 Room Air Intake and Output 08/04/16 08/04/16 08/05/16 15:00 23:00 07:00 Intake Total 450 ml 2175 ml 1425 ml Output Total 1000 ml 1100 ml Balance 450 ml 1175 ml 325 ml Exam Constitutional: alert, oriented Psych: other (diaphoretic) Head: normocephalic Neck: supple Respiratory: clear to auscultation Cardiovascular: regular rate and rhythm Gastrointestinal: non-tender, soft Musculoskeletal: nl extremities to inspection 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 intact Lymph: enlarged (large 3 x 4 cm painful inguinal lymph node, no other palpable LAD) Results Result Diagram: 08/05/16 0510 08/05/16 0510 Results 24 hrs Laboratory Tests Test 08/05/16 05:10 Alanine Aminotransferase (ALT/SGPT) 34 Albumin 3.3 Albumin/Globulin Ratio 0.94 Alkaline Phosphatase 74 Anion Gap 13 Aspartate Amino Transf (AST/SGOT) 22 Basophils # 0.0 Basophils % 0.2 Blood Urea Nitrogen 9 Calcium Level 8.5 Carbon Dioxide Level 29 Chloride Level 101 Creatinine 0.81 Direct Bilirubin 0.00 Eosinophils # 0.2 Eosinophils % 1.8 Globulin 3.50 H Glucose Level 101 HIV (1&2) Antibody NEGATIVE Hematocrit 37.9 L Hemoglobin 12.7 L Hepatitis B Core Total Antibody NEGATIVE Hepatitis B Surface Antigen NEGATIVE Hepatitis C Antibody NEGATIVE Indirect Bilirubin 0.1 Lactate Dehydrogenase 575 Lymphocytes # 1.8 Lymphocytes % 19.9 Mean Corpuscular Hemoglobin 28.2 L Mean Corpuscular Hemoglobin Concent 33.5 Mean Corpuscular Volume 84.2 Mean Platelet Volume 8.5 Monocytes # 1.1 H Monocytes % 12.6 H Neutrophils # 5.7 Neutrophils % 65.0 Nucleated Red Blood Cells # 0.0 Nucleated Red Blood Cells % 0.0 Phosphorus Level 4.3 Platelet Count 327 Potassium Level 4.2 Red Blood Count 4.50 L Red Cell Distribution Width 12.1 Sodium Level 139 Total Bilirubin 0.1 L Total Protein 6.8 Uric Acid 4.3 White Blood Count 8.8 Medications Medications Current Medications Sodium Chloride (NS) 1,000 ml @ 100 mls/hr Q10H IV Last administered on 15:45; Admin Dose 100 MLS/HR; Start 08/02/16 at 01:23 Ondansetron HCl (Zofran Inj) 4 mg Q6H PRN IV NAUSEA AND/OR VOMITING; Start at 01:30 Morphine Sulfate (morphine) 2 mg Q4H PRN IV SEVERE PAIN LEVEL 7-10 Last administered on 08/03/16 19:08; Admin Dose 2 MG; Start 08/02/16 at 01:30 Acetaminophen (Tylenol Tab) 650 mg Q6H PRN PO PAIN AND OR ELEVATED TEMP Last administered on 08/05/16 12:45; Admin Dose 650 MG; Start 08/03/16 at 11:00 Acetaminophen/ Hydrocodone Bitart ([place] (5/325)) 1 tab Q6H PRN PO MODERATE PAIN (4-6/10) Last administered on 08/04/16t 21:46; Admin Dose 1 TAB; Start at 23:30 TODAKOTAH MD Aug 05, 2016 16:58
[2016-08-05] MEDS: HYDROCODONE/APAP (5/325) TAB PO PRN (18:00)
[2016-08-05 21:02] VITALS: BP 131/71; RESP 20
[2016-08-06] MEDS: SOD CHLORIDE 0.9% 1,000 ML IV SCH ×3 (02:55→12:50)
[2016-08-06] MEDS: HYDROCODONE/APAP (5/325) TAB PO PRN ×2 (02:55→22:55)
[2016-08-06 05:24] LABS: ADD SCAN DIFF NO
[2016-08-06 05:39] LABS: BASOPHILS % 0.3 % (0.0-2.0); EOSINOPHILS # 0.1 10^3/ul (0.0-0.5); EOSINOPHILS % 0.8 % (0.0-7.0); HEMATOCRIT 37.1 % (42.0-52.0); HEMOGLOBIN 12.4 g/dl (14.0-18.0); LYMPHOCYTES # 1.8 10^3/ul (0.8-2.9); LYMPHOCYTES % 15.6 % (15.0-51.0); MEAN CORPUSCULAR HEMOGLOBIN 27.9 pg (29.0-33.0); MEAN CORPUSCULAR HGB CONC 33.4 g/dl (32.0-37.0); MEAN CORPUSCULAR VOLUME 83.6 fl (82.0-101.0); MEAN PLATELET VOLUME 8.4 fl (7.4-10.4); MONOCYTE # 1.3 10^3/ul (0.3-0.9); MONOCYTES % 11.4 % (0.0-11.0); NEUTROPHIL # 8.2 10^3/ul (1.6-7.5); NEUTROPHILS % 71.3 % (39.0-77.0); PLATELET COUNT 354 10^3/UL (140-415); RED BLOOD COUNT 4.44 10^6/ul (4.70-6.10); RED CELL DISTRIBUTION WIDTH 11.9 % (11.5-14.5); WHITE BLOOD COUNT 11.5 10^3/ul (4.8-10.8)
[2016-08-06 05:48] LABS: POTASSIUM 4.4 mmol/L (3.5-5.1)
[2016-08-06 05:51] LABS: CREATININE 0.81 mg/dl (0.61-1.24)
[2016-08-06 05:52] LABS: CALCIUM 8.8 mg/dl (8.4-10.2)
[2016-08-06] MEDS: morphine 2 MG INJ IV PRN (05:59)
[2016-08-06 07:48] VITALS: BP 130/80; RESP 20
--- NOTE | 2016-08-06 08:42 | CONS ---
Date/Time of Note Date/Time of Note DATE: 08/06/16 TIME: 08:41 Assessment/Plan Assessment/Plan Chief Complaint/Hosp Course The patient is a 41 year old male with enlarged right inguinal soft tissue density with inflammatory changes suggesting LAD, now s/p US guided core biopsy of right inguinal lymph node on 08/03/16 with results pending. - f/u final path, prelim path per Dr. Higuera was benign, with 1 poorly formed granuloma with necrosis with flow cytometry negative for immunophenotypic abnormality though paucicellular specimen, pending immunostains which will result today. No evidence of lymphoma at this time. - Will order MRI brain to rule out REAL ESTATE ECONOMIST mass/infection given concern for possible malignancy and continued fevers, headache, etc. - LDH normal at 575, uric acid 4.3, HIV and hepatitis negative - CT chest 08/04/16shows mildly enlarged left axillary lymph node that measures up to 3.5 x 1.0 cm in diameter with the visible fatty hilar component. There may lymph nodes within the thorax demonstrate no significant thickening or enlargement. Follow up LLL 4 mm pulmonary nodule in 6 months. - follow up final path, consider outpatient PET and/or repeat biopsy Will continue to follow Problems: Consultation Date/Type/Reason Admit Date/Time Aug 02, 2016 at 00:22 Initial Consult Date 08/04/16 Type of Consultation: Hematology/Oncology 24 HR Interval Summary Free Text/Dictation The patient continues to have sweats and complains of a headache. Exam/Review of Systems Vital Signs Vitals Vital Signs Date Time Temp Pulse Resp B/P Pulse Ox O2 Delivery O2 Flow Rate FiO2 08/06/16 07:48 99.0 84 20 130/80 100 Intake and Output 08/05/16 08/05/16 08/06/16 15:00 23:00 07:00 Intake Total 2430 ml 1650 ml Output Total 1550 ml 1700 ml Balance 880 ml -50 ml Exam Constitutional: alert, oriented Psych: other (diaphoretic) Head: normocephalic Neck: supple Respiratory: clear to auscultation Cardiovascular: regular rate and rhythm Gastrointestinal: non-tender, soft Musculoskeletal: nl extremities to inspection Neurological: REAL ESTATE ECONOMIST II-XII intact Lymph: enlarged (large 3 x 4 cm painful inguinal lymph node, no other palpable LAD) Results Result Diagram: 08/06/16 0505 08/06/16 0500 Results 24 hrs Laboratory Tests Test 08/06/16 05:00 08/06/16 05:05 Anion Gap 14 Blood Urea Nitrogen 9 Calcium Level 8.8 Carbon Dioxide Level 26 Chloride Level 99 Creatinine 0.81 Glucose Level 105 Potassium Level 4.4 Sodium Level 135 Basophils # 0.0 Basophils % 0.3 Eosinophils # 0.1 Eosinophils % 0.8 Hematocrit 37.1 L Hemoglobin 12.4 L Lymphocytes # 1.8 Lymphocytes % 15.6 Mean Corpuscular Hemoglobin 27.9 L Mean Corpuscular Hemoglobin Concent 33.4 Mean Corpuscular Volume 83.6 Mean Platelet Volume 8.4 Monocytes # 1.3 H Monocytes % 11.4 H Neutrophils # 8.2 H Neutrophils % 71.3 Nucleated Red Blood Cells # 0.0 Nucleated Red Blood Cells % 0.0 Platelet Count 354 Red Blood Count 4.44 L Red Cell Distribution Width 11.9 White Blood Count 11.5 #H Medications Medications Current Medications Sodium Chloride (NS) 1,000 ml @ 100 mls/hr Q10H IV Last administered on 02:55; Admin Dose 100 MLS/HR; Start 08/02/16 at 01:23 Ondansetron HCl (Zofran Inj) 4 mg Q6H PRN IV NAUSEA AND/OR VOMITING; Start at 01:30 Morphine Sulfate (morphine) 2 mg Q4H PRN IV SEVERE PAIN LEVEL 7-10 Last administered on 08/06/16 05:59; Admin Dose 2 MG; Start 08/02/16 at 01:30 Acetaminophen (Tylenol Tab) 650 mg Q6H PRN PO PAIN AND OR ELEVATED TEMP Last administered on 08/05/16 19:41; Admin Dose 650 MG; Start 08/03/16 at 11:00 Acetaminophen/ Hydrocodone Bitart ([place] (5/325)) 1 tab Q6H PRN PO MODERATE PAIN (4-6/10) Last administered on 08/06/16 02:55; Admin Dose 1 TAB; Start at 23:30 DAKOTAH PRIDE MD Aug 06, 2016 08:41
--- NOTE | 2016-08-06 15:27 | PN ---
Date/Time of Note Date/Time of Note DATE: 08/06/16 TIME: 15:25 Assessment/Plan VTE Prophylaxis VTE Prophylaxis Intervention: ambulation Lines/Catheters [facility] ([facility] Peripheral IV Urinary Cath still in place: No Assessment/Plan Chief Complaint/Hosp Course 1) Right Inguinal Mass Surgery does not feel that the mass is a hernia and has recommended biopsy for evaluation of lymphoma, patient is status post ultrasound guided biopsy Prelim pathology does not suggest lymphoma, patient still having fevers an MRI of the brain ordered to eval for LOCKER ROOM ATTENDANT mass/infection Oncology consultation appreciated CT chest shows a mildly enlarged left axillary lymph node 2) Fever and Chills Patient continues to have fevers today, MRI of the brain ordered to eval for mass/infection 3) Dysuria UA is negative, RPR is nonreactive Prophylaxis: Ambulation Problems: Subjective 24 Hr Interval Summary Constitutional: no complaints Exam/Review of Systems Vital Signs Vitals Vital Signs Date Time Temp Pulse Resp B/P Pulse Ox O2 Delivery O2 Flow Rate FiO2 08/06/16 07:48 99.0 84 20 130/80 100 Intake and Output 08/05/16 08/05/16 08/06/16 15:00 23:00 07:00 Intake Total 2430 ml 1650 ml Output Total 1550 ml 1700 ml Balance 880 ml -50 ml Exam Constitutional: alert, oriented Respiratory: clear to auscultation Cardiovascular: regular rate and rhythm Gastrointestinal: soft, No distended Musculoskeletal: nl extremities to inspection Results Result Diagram: 08/06/16 0505 08/06/16 0500 Results 24 hrs Laboratory Tests Test 08/06/16 05:00 08/06/16 05:05 Anion Gap 14 Blood Urea Nitrogen 9 Calcium Level 8.8 Carbon Dioxide Level 26 Chloride Level 99 Creatinine 0.81 Glucose Level 105 Potassium Level 4.4 Sodium Level 135 Basophils # 0.0 Basophils % 0.3 Eosinophils # 0.1 Eosinophils % 0.8 Hematocrit 37.1 L Hemoglobin 12.4 L Lymphocytes # 1.8 Lymphocytes % 15.6 Mean Corpuscular Hemoglobin 27.9 L Mean Corpuscular Hemoglobin Concent 33.4 Mean Corpuscular Volume 83.6 Mean Platelet Volume 8.4 Monocytes # 1.3 H Monocytes % 11.4 H Neutrophils # 8.2 H Neutrophils % 71.3 Nucleated Red Blood Cells # 0.0 Nucleated Red Blood Cells % 0.0 Platelet Count 354 Red Blood Count 4.44 L Red Cell Distribution Width 11.9 White Blood Count 11.5 #H Medications Medications Current Medications Sodium Chloride (NS) 1,000 ml @ 100 mls/hr Q10H IV Last administered on 12:50; Admin Dose 100 MLS/HR; Start 08/02/16 at 01:23 Ondansetron HCl (Zofran Inj) 4 mg Q6H PRN IV NAUSEA AND/OR VOMITING; Start at 01:30 Morphine Sulfate (morphine) 2 mg Q4H PRN IV SEVERE PAIN LEVEL 7-10 Last administered on 08/06/16 05:59; Admin Dose 2 MG; Start 08/02/16 at 01:30 Acetaminophen (Tylenol Tab) 650 mg Q6H PRN PO PAIN AND OR ELEVATED TEMP Last administered on 08/05/16 19:41; Admin Dose 650 MG; Start 08/03/16 at 11:00 Acetaminophen/ Hydrocodone Bitart ([place] (5/325)) 1 tab Q6H PRN PO MODERATE PAIN (4-6/10) Last administered on 08/06/16 02:55; Admin Dose 1 TAB; Start at 23:30 ANTONIO WONG Aug 06, 2016 15:27
--- NOTE | 2016-08-06 17:24 | RADRPT ---
PROCEDURE: MRI Brain without and with contrast. CLINICAL INDICATION: Headaches, fevers TECHNIQUE: Multiplanar MRI of the brain without and with contrast was performed on a 3.0 T scanner with the following sequences obtained: T1-weighted, T2-weighted/FLAIR, diffusion weighted (with ADC map), GRE, postcontrast T1-weighted. 10 cc Magnevist intravenous contrast administered. COMPARISON: None available FINDINGS: No acute/recent ischemic infarction or intracranial hemorrhage / blood degradation products are iden tified. No extra-axial fluid collection is seen. No intracranial mass lesion is identified. There is no mass effect. No midline shift is identified. The ventricles and sulci are within normal limits for size and configuration. A couple of punctate foci of increased T2-weighted FLAIR signal intensity are seen in the deep white matter which are nonspecific. No abnormal parenchymal, leptomeningeal or dural enhancement is iden tified. Flow voids are identified in the proximal intracranial arteries and dural sinuses suggesting patency . The mastoid air cells and paranasal sinuses are grossly clear. IMPRESSION: 1. No evidence of acute intracranial pathology, or intracranial mass. 2. Minimal nonspecific white matter changes, which may reflect chronic small vessel ischemic change s, possibly sequela of complicated migraines. RPTAT: VV .Celio Oreilly MD, MD Date Time Electronically viewed and signed by .Celio Oreilly MD, MD on 08/06/2016 17:24 .O/
[2016-08-06 20:25] VITALS: BP 120/75; RESP 18
[2016-08-07] MEDS: SOD CHLORIDE 0.9% 1,000 ML IV SCH ×3 (00:46→21:21)
[2016-08-07 05:14] LABS: ADD SCAN DIFF NO
[2016-08-07 05:19] LABS: BASOPHILS % 0.4 % (0.0-2.0); EOSINOPHILS # 0.1 10^3/ul (0.0-0.5); HEMATOCRIT 40.2 % (42.0-52.0); HEMOGLOBIN 13.2 g/dl (14.0-18.0); LYMPHOCYTES # 1.8 10^3/ul (0.8-2.9); LYMPHOCYTES % 18.1 % (15.0-51.0); MEAN CORPUSCULAR HEMOGLOBIN 27.4 pg (29.0-33.0); MEAN CORPUSCULAR HGB CONC 32.8 g/dl (32.0-37.0); MEAN CORPUSCULAR VOLUME 83.6 fl (82.0-101.0); MEAN PLATELET VOLUME 8.4 fl (7.4-10.4); MONOCYTE # 1.2 10^3/ul (0.3-0.9); MONOCYTES % 11.5 % (0.0-11.0); NEUTROPHILS % 68.5 % (39.0-77.0); PLATELET COUNT 402 10^3/UL (140-415); RED BLOOD COUNT 4.81 10^6/ul (4.70-6.10); WHITE BLOOD COUNT 10.2 10^3/ul (4.8-10.8)
[2016-08-07 05:57] LABS: POTASSIUM 4.1 mmol/L (3.5-5.1)
[2016-08-07 05:59] LABS: CREATININE 0.85 mg/dl (0.61-1.24)
[2016-08-07 06:00] LABS: CALCIUM 8.8 mg/dl (8.4-10.2)
[2016-08-07 07:29] VITALS: BP 126/76; RESP 16
[2016-08-07] MEDS: HYDROCODONE/APAP (5/325) TAB PO PRN ×2 (10:59→21:20)
--- NOTE | 2016-08-07 17:29 | PN ---
Date/Time of Note Date/Time of Note DATE: 08/07/16 TIME: 17:26 Assessment/Plan VTE Prophylaxis VTE Prophylaxis Intervention: ambulation Lines/Catheters [facility] Peripheral IV Urinary Cath still in place: No Assessment/Plan Chief Complaint/Hosp Course 1) Right Inguinal Mass Surgery does not feel that the mass is a hernia and has recommended biopsy for evaluation of lymphoma, patient is status post ultrasound guided biopsy Pathology shows a benign reactive lymph node with focal poorly formed histiocytic granuloma. AFB and GMS stains with appropriate controls, are negative for pathogenic organisms Patient still having fevers, infectious workup is negative MRI of the brain is negative Oncology consultation appreciated CT chest shows a mildly enlarged left axillary lymph node 2) Fever and Chills Patient continues to have fevers today, etiology is unclear at this time, workup is negative for infection 3) Dysuria UA is negative, RPR is nonreactive Prophylaxis: Ambulation Problems: Subjective 24 Hr Interval Summary Constitutional: no complaints Exam/Review of Systems Vital Signs Vitals Vital Signs Date Time Temp Pulse Resp B/P Pulse Ox O2 Delivery O2 Flow Rate FiO2 08/07/16 07:29 99.7 89 16 126/76 98 Intake and Output 08/06/16 08/06/16 08/07/16 15:00 23:00 07:00 Intake Total 1860 ml 1700 ml Output Total 1450 ml 1120 ml Balance 410 ml 580 ml Exam Constitutional: alert, oriented Respiratory: clear to auscultation Cardiovascular: regular rate and rhythm Gastrointestinal: soft, No distended Musculoskeletal: nl extremities to inspection Results Result Diagram: 08/07/16 0438 08/07/16 0438 Results 24 hrs Laboratory Tests Test 08/07/16 04:38 08/07/16 16:15 Anion Gap 13 Basophils # 0.0 Basophils % 0.4 Blood Urea Nitrogen 11 Calcium Level 8.8 Carbon Dioxide Level 30 Chloride Level 98 Creatinine 0.85 Eosinophils # 0.1 Eosinophils % 1.0 Glucose Level 109 Hematocrit 40.2 L Hemoglobin 13.2 L Lymphocytes # 1.8 Lymphocytes % 18.1 Mean Corpuscular Hemoglobin 27.4 L Mean Corpuscular Hemoglobin Concent 32.8 Mean Corpuscular Volume 83.6 Mean Platelet Volume 8.4 Monocytes # 1.2 H Monocytes % 11.5 H Neutrophils # 7.0 Neutrophils % 68.5 Nucleated Red Blood Cells # 0.0 Nucleated Red Blood Cells % 0.0 Platelet Count 402 Potassium Level 4.1 Red Blood Count 4.81 Red Cell Distribution Width 12.0 Sodium Level 137 White Blood Count 10.2 Thyroid Stimulating Hormone (TSH) 3.240 Medications Medications Current Medications Sodium Chloride (NS) 1,000 ml @ 100 mls/hr Q10H IV Last administered on 10:59; Admin Dose 100 MLS/HR; Start 08/02/16 at 01:23 Ondansetron HCl (Zofran Inj) 4 mg Q6H PRN IV NAUSEA AND/OR VOMITING; Start at 01:30 Morphine Sulfate (morphine) 2 mg Q4H PRN IV SEVERE PAIN LEVEL 7-10 Last administered on 08/06/16 05:59; Admin Dose 2 MG; Start 08/02/16 at 01:30 Acetaminophen (Tylenol Tab) 650 mg Q6H PRN PO PAIN AND OR ELEVATED TEMP Last administered on 08/05/16 19:41; Admin Dose 650 MG; Start 08/03/16 at 11:00 Acetaminophen/ Hydrocodone Bitart ([place] (5/325)) 1 tab Q6H PRN PO MODERATE PAIN (4-6/10) Last administered on 08/07/16 10:59; Admin Dose 1 TAB; Start at 23:30 ANTONIO WONG 18, 2017 17:29
[2016-08-07 20:27] VITALS: BP 136/79; RESP 20
[2016-08-07] MEDS: ACETAMINOPHEN 325 MG TAB PO PRN (23:24)
[2016-08-08 05:36] LABS: ADD SCAN DIFF NO
[2016-08-08 05:41] LABS: BASOPHIL # 0.1 10^3/ul (0.0-0.1); BASOPHILS % 0.5 % (0.0-2.0); EOSINOPHILS # 0.1 10^3/ul (0.0-0.5); EOSINOPHILS % 1.5 % (0.0-7.0); HEMATOCRIT 38.7 % (42.0-52.0); HEMOGLOBIN 12.9 g/dl (14.0-18.0); LYMPHOCYTES # 1.8 10^3/ul (0.8-2.9); MEAN CORPUSCULAR HGB CONC 33.3 g/dl (32.0-37.0); MEAN CORPUSCULAR VOLUME 83.9 fl (82.0-101.0); MEAN PLATELET VOLUME 8.4 fl (7.4-10.4); MONOCYTE # 1.4 10^3/ul (0.3-0.9); MONOCYTES % 14.9 % (0.0-11.0); NEUTROPHILS % 63.7 % (39.0-77.0); PLATELET COUNT 390 10^3/UL (140-415); RED BLOOD COUNT 4.61 10^6/ul (4.70-6.10); RED CELL DISTRIBUTION WIDTH 12.1 % (11.5-14.5); WHITE BLOOD COUNT 9.4 10^3/ul (4.8-10.8)
[2016-08-08 05:55] LABS: POTASSIUM 5.3 mmol/L (3.5-5.1)
[2016-08-08 05:57] LABS: CREATININE 0.88 mg/dl (0.61-1.24)
[2016-08-08 07:37] VITALS: BP 118/77; RESP 18
[2016-08-08] MEDS: SOD CHLORIDE 0.9% 1,000 ML IV SCH ×2 (08:50→17:15)
[2016-08-08] MEDS: HYDROCODONE/APAP (5/325) TAB PO PRN ×2 (08:53→20:46)
--- NOTE | 2016-08-08 11:42 | PN ---
Date/Time of Note Date/Time of Note DATE: 08/08/16 TIME: 11:40 Assessment/Plan VTE Prophylaxis VTE Prophylaxis Intervention: ambulation Lines/Catheters IV C[facility]ter Type (from [facility]): Peripheral IV Urinary Cath still in place: No Assessment/Plan Chief Complaint/Hosp Course 1) Right Inguinal Mass Surgery does not feel that the mass is a hernia and has recommended biopsy for evaluation of lymphoma, patient is status post ultrasound guided biopsy Pathology shows a benign reactive lymph node with focal poorly formed histiocytic granuloma. AFB and GMS stains with appropriate controls, are negative for pathogenic organisms Patient still having fevers, infectious workup is negative so far MRI of the brain is negative Oncology consultation appreciated CT chest shows a mildly enlarged left axillary lymph node 2) Fever and Chills Patient continues to have fevers today, etiology is unclear at this time, workup so far is negative for infection, ID Consultation 3) Dysuria UA is negative, RPR is nonreactive Prophylaxis: Ambulation Problems: Subjective 24 Hr Interval Summary Constitutional: no complaints Exam/Review of Systems Vital Signs Vitals Vital Signs Date Time Temp Pulse Resp B/P Pulse Ox O2 Delivery O2 Flow Rate FiO2 08/08/16 07:37 98.8 93 18 118/77 97 Intake and Output 08/07/16 08/07/16 08/08/16 15:00 23:00 07:00 Intake Total 1350 ml 500 ml Output Total 1250 ml 1200 ml Balance 100 ml -700 ml Exam Constitutional: alert, oriented Respiratory: clear to auscultation Cardiovascular: regular rate and rhythm Gastrointestinal: soft, No distended Musculoskeletal: nl extremities to inspection Results Result Diagram: 08/08/16 0500 08/08/16 0500 Results 24 hrs Laboratory Tests Test 08/07/16 16:15 08/08/16 05:00 Erythrocyte Sedimentation Rate 90 H Thyroid Stimulating Hormone (TSH) 3.240 Anion Gap 13 Basophils # 0.1 Basophils % 0.5 Blood Urea Nitrogen 12 Calcium Level 9.0 Carbon Dioxide Level 30 Chloride Level 99 Creatinine 0.88 Eosinophils # 0.1 Eosinophils % 1.5 Glucose Level 105 Hematocrit 38.7 L Hemoglobin 12.9 L Lymphocytes # 1.8 Lymphocytes % 19.0 Mean Corpuscular Hemoglobin 28.0 L Mean Corpuscular Hemoglobin Concent 33.3 Mean Corpuscular Volume 83.9 Mean Platelet Volume 8.4 Monocytes # 1.4 H Monocytes % 14.9 H Neutrophils # 6.0 Neutrophils % 63.7 Nucleated Red Blood Cells # 0.0 Nucleated Red Blood Cells % 0.0 Platelet Count 390 Potassium Level 5.3 H Red Blood Count 4.61 L Red Cell Distribution Width 12.1 Sodium Level 137 White Blood Count 9.4 Medications Medications Current Medications Sodium Chloride (NS) 1,000 ml @ 100 mls/hr Q10H IV Last administered on 08:50; Admin Dose 100 MLS/HR; Start 08/02/16 at 01:23 Ondansetron HCl (Zofran Inj) 4 mg Q6H PRN IV NAUSEA AND/OR VOMITING; Start at 01:30 Morphine Sulfate (morphine) 2 mg Q4H PRN IV SEVERE PAIN LEVEL 7-10 Last administered on 08/06/16 05:59; Admin Dose 2 MG; Start 08/02/16 at 01:30 Acetaminophen (Tylenol Tab) 650 mg Q6H PRN PO PAIN AND OR ELEVATED TEMP Last administered on 08/07/16 23:24; Admin Dose 650 MG; Start 08/03/16 at 11:00 Acetaminophen/ Hydrocodone Bitart ([place] (5/325)) 1 tab Q6H PRN PO MODERATE PAIN (4-6/10) Last administered on 08/08/16 08:53; Admin Dose 1 TAB; Start at 23:30 ANTONIO WONG Aug 08, 2016 11:42
--- NOTE | 2016-08-08 14:57 | CONS ---
Date/Time of Note Date/Time of Note DATE: 08/08/16 TIME: 14:51 Assessment/Plan Assessment/Plan Chief Complaint/Hosp Course Persistent fevers R inguinal mass, s/p bx==> no evidence of lymphoma per pathology Plan: Clinically stable, all cx's negative, RPR/HIV negative, will observe off abx, if fevers persist will order WBC nuclear scan, consider surgical eval DW DR Restrepo Thank you Problems: Consultation Date/Type/Reason Admit Date/Time Aug 02, 2016 at 00:22 Type of Consultation: ID Referring Provider: ANTONIO WONG Constitutional: no complaints Eyes: no complaints ENT: no complaints Respiratory: no complaints Cardiovascular: no complaints Gastrointestinal: decreased appetite, nausea, No diarrhea, No vomiting Genitourinary: dysuria, No discharge, No flank pain, No hematuria Musculoskeletal: No back pain, No neck pain Skin: No pruritis, No rash, No skin lesions Neurologic: headache, No dizziness, No focal-weakness, No syncope Psychological: other (diaphoretic) Immunologic: No immunodeficiency, No pruritis, No rhinitis Past Medical History Medical History: no pertinent history Past Surgical History Past Surgical Hx: no surgical history Social History Alcohol Use: none Smoking Status: Never smoker Drug Use: none Exam/Review of Systems Vital Signs Vitals Vital Signs Date Time Temp Pulse Resp B/P Pulse Ox O2 Delivery O2 Flow Rate FiO2 08/08/16 07:37 98.8 93 18 118/77 97 Intake and Output 08/07/16 08/07/16 08/08/16 15:00 23:00 07:00 Intake Total 1350 ml 500 ml Output Total 1250 ml 1200 ml Balance 100 ml -700 ml Results Result Diagram: 08/08/16 0500 08/08/16 0500 Results 24 hrs Laboratory Tests Test 08/07/16 16:15 08/08/16 05:00 Erythrocyte Sedimentation Rate 90 H Thyroid Stimulating Hormone (TSH) 3.240 Anion Gap 13 Basophils # 0.1 Basophils % 0.5 Blood Urea Nitrogen 12 Calcium Level 9.0 Carbon Dioxide Level 30 Chloride Level 99 Creatinine 0.88 Eosinophils # 0.1 Eosinophils % 1.5 Glucose Level 105 Hematocrit 38.7 L Hemoglobin 12.9 L Lymphocytes # 1.8 Lymphocytes % 19.0 Mean Corpuscular Hemoglobin 28.0 L Mean Corpuscular Hemoglobin Concent 33.3 Mean Corpuscular Volume 83.9 Mean Platelet Volume 8.4 Monocytes # 1.4 H Monocytes % 14.9 H Neutrophils # 6.0 Neutrophils % 63.7 Nucleated Red Blood Cells # 0.0 Nucleated Red Blood Cells % 0.0 Platelet Count 390 Potassium Level 5.3 H Red Blood Count 4.61 L Red Cell Distribution Width 12.1 Sodium Level 137 White Blood Count 9.4 Medications Medications Current Medications Sodium Chloride (NS) 1,000 ml @ 100 mls/hr Q10H IV Last administered on 08:50; Admin Dose 100 MLS/HR; Start 08/02/16 at 01:23 Ondansetron HCl (Zofran Inj) 4 mg Q6H PRN IV NAUSEA AND/OR VOMITING; Start at 01:30 Morphine Sulfate (morphine) 2 mg Q4H PRN IV SEVERE PAIN LEVEL 7-10 Last administered on 08/06/16 05:59; Admin Dose 2 MG; Start 08/02/16 at 01:30 Acetaminophen (Tylenol Tab) 650 mg Q6H PRN PO PAIN AND OR ELEVATED TEMP Last administered on 08/07/16 23:24; Admin Dose 650 MG; Start 08/03/16 at 11:00 Acetaminophen/ Hydrocodone Bitart ([place] (5/325)) 1 tab Q6H PRN PO MODERATE PAIN (4-6/10) Last administered on 08/08/16 08:53; Admin Dose 1 TAB; Start at 23:30 LUCAS FIGUEROA NP Aug 08, 2016 14:57
--- NOTE | 2016-08-08 19:09 | PN ---
DATE: 08/08/2016 HEMATOLOGY FOLLOWUP HISTORY OF PRESENT ILLNESS: Mr. Miguel Vogt is a 41-year-old Bulgarian speaking gentleman with his tory of mass and tenderness in the right groin and low grade fevers. He had a biopsy done 2 days ag o, which showed necrosis with a granuloma and negative for on flow cytometry for cancer cells. Furt her immuno stains are pending. I show the patient yesterday and dictated a note but that note is mi ssing. I ordered an NIGEL which is pending. The ESR I ordered yesterday is very high at 90 and a TSH is normal. PHYSICAL EXAMINATION: GENERAL: Shows moderately built male in no distress. ENT: Normal. HEART: Normal. LUNGS: Normal. ABDOMEN: Soft. The patient has a diffusely indurated mass in the right groin which is tender. No mass in the left groin. LYMPH NODES: No peripheral lymphadenopathy. SKIN: Shows no rashes or petechiae. LABORATORY DATA: CBC is unremarkable except for mild anemia with hemoglobin 12.9 and MCV 83. His C MP is unremarkable with a normal creatinine, but his globulin is slightly high at 3.5 with albumin 3 .3. IMPRESSION: 1. Mass in the right inguinal area, status post needle biopsy showing benign findings. Further test s still pending. 2. Low grade fever. 3. Mild hypergammaglobulinemia most likely secondary to inflammatory reaction. PLAN AND DISCUSSION: We should certainly wait for the NIGEL and also for the immunohistochemical stai ns on the right inguinal area biopsy. An ID consult has been requested, which I agree with. Also, we need to rule out his hepatitis panel is negative. If he has fever over 101, he will need repeat cultures. Dictated By: ANDREY REED MD PC/PRERNA Conf#: [id number] DID#: [id number]
[2016-08-08 20:06] VITALS: BP 126/75; RESP 18
[2016-08-09] MEDS: SOD CHLORIDE 0.9% 1,000 ML IV SCH ×3 (02:21→08:21)
[2016-08-09] MEDS: HYDROCODONE/APAP (5/325) TAB PO PRN ×3 (05:32→21:26)
[2016-08-09 05:53] LABS: ADD SCAN DIFF NO
[2016-08-09 05:56] LABS: BASOPHILS % 0.4 % (0.0-2.0); EOSINOPHILS # 0.2 10^3/ul (0.0-0.5); EOSINOPHILS % 1.6 % (0.0-7.0); HEMATOCRIT 37.6 % (42.0-52.0); HEMOGLOBIN 12.7 g/dl (14.0-18.0); LYMPHOCYTES # 1.9 10^3/ul (0.8-2.9); LYMPHOCYTES % 18.7 % (15.0-51.0); MEAN CORPUSCULAR HEMOGLOBIN 28.2 pg (29.0-33.0); MEAN CORPUSCULAR HGB CONC 33.8 g/dl (32.0-37.0); MEAN CORPUSCULAR VOLUME 83.4 fl (82.0-101.0); MEAN PLATELET VOLUME 8.3 fl (7.4-10.4); MONOCYTE # 1.2 10^3/ul (0.3-0.9); MONOCYTES % 11.7 % (0.0-11.0); NEUTROPHIL # 6.8 10^3/ul (1.6-7.5); NEUTROPHILS % 67.1 % (39.0-77.0); PLATELET COUNT 432 10^3/UL (140-415); RED BLOOD COUNT 4.51 10^6/ul (4.70-6.10); RED CELL DISTRIBUTION WIDTH 11.9 % (11.5-14.5); WHITE BLOOD COUNT 10.2 10^3/ul (4.8-10.8)
[2016-08-09 06:13] LABS: POTASSIUM 4.7 mmol/L (3.5-5.1)
[2016-08-09 06:16] LABS: CREATININE 0.88 mg/dl (0.61-1.24)
[2016-08-09 08:11] VITALS: BP 108/69; PULSE 82; RESP 18
--- NOTE | 2016-08-09 10:22 | PN ---
Date/Time of Note Date/Time of Note DATE: 08/09/16 TIME: 10:18 Assessment/Plan VTE Prophylaxis VTE Prophylaxis Intervention: other Lines/Catheters [facility] Peripheral IV Urinary Cath still in place: No Assessment/Plan Assessment/Plan 1) Right Inguinal Mass Surgery does not feel that the mass is a hernia and has recommended biopsy for evaluation of lymphoma, patient is status post ultrasound guided biopsy Pathology shows a benign reactive lymph node with focal poorly formed histiocytic granuloma. AFB and GMS stains with appropriate controls, are negative for pathogenic organisms Patient still having fevers, infectious workup is negative so far MRI of the brain is negative Oncology consultation appreciated CT chest shows a mildly enlarged left axillary lymph node- [place] wants to wait for the NIGEL and also for the immunohistochemical stains on the right inguinal area biopsy. 2) Fever and Chills ID consulted, Tmax 100.4 in last 24 hour 3) Dysuria UA is negative, RPR is nonreactive Prophylaxis: Ambulation Subjective 24 Hr Interval Summary Free Text/Dictation T max 100.1, ID consulted, s/p Us guided bx of inguinal mass, BP stable Exam/Review of Systems Vital Signs Vitals Vital Signs Date Time Temp Pulse Resp B/P Pulse Ox O2 Delivery O2 Flow Rate FiO2 08/09/16 08:11 98.2 82 18 108/69 98 Room Air Intake and Output 08/08/16 08/08/16 08/09/16 15:00 23:00 07:00 Intake Total 1000 ml 2480 ml 1680 ml Output Total 1250 ml 1800 ml Balance 1000 ml 1230 ml -120 ml Exam Constitutional: alert, oriented Respiratory: clear to auscultation Cardiovascular: regular rate and rhythm Gastrointestinal: soft, No distended Musculoskeletal: nl extremities to inspection Results Result Diagram: 08/09/16 0500 08/09/16 0500 Results 24 hrs Laboratory Tests Test 08/09/16 05:00 Anion Gap 16 Basophils # 0.0 Basophils % 0.4 Blood Urea Nitrogen 11 Calcium Level 9.0 Carbon Dioxide Level 28 Chloride Level 99 Creatinine 0.88 Eosinophils # 0.2 Eosinophils % 1.6 Glucose Level 100 Hematocrit 37.6 L Hemoglobin 12.7 L Lymphocytes # 1.9 Lymphocytes % 18.7 Mean Corpuscular Hemoglobin 28.2 L Mean Corpuscular Hemoglobin Concent 33.8 Mean Corpuscular Volume 83.4 Mean Platelet Volume 8.3 Monocytes # 1.2 H Monocytes % 11.7 H Neutrophils # 6.8 Neutrophils % 67.1 Nucleated Red Blood Cells # 0.0 Nucleated Red Blood Cells % 0.0 Platelet Count 432 H Potassium Level 4.7 Red Blood Count 4.51 L Red Cell Distribution Width 11.9 Sodium Level 138 White Blood Count 10.2 Medications Medications Current Medications Sodium Chloride (NS) 1,000 ml @ 100 mls/hr Q10H IV Last administered on 08:21; Admin Dose 100 MLS/HR; Start 08/02/16 at 01:23 Ondansetron HCl (Zofran Inj) 4 mg Q6H PRN IV NAUSEA AND/OR VOMITING; Start at 01:30 Morphine Sulfate (morphine) 2 mg Q4H PRN IV SEVERE PAIN LEVEL 7-10 Last administered on 08/06/16 05:59; Admin Dose 2 MG; Start 08/02/16 at 01:30 Acetaminophen (Tylenol Tab) 650 mg Q6H PRN PO PAIN AND OR ELEVATED TEMP Last administered on 08/07/16 23:24; Admin Dose 650 MG; Start 08/03/16 at 11:00 Acetaminophen/ Hydrocodone Bitart ([place] (5/325)) 1 tab Q6H PRN PO MODERATE PAIN (4-6/10) Last administered on 08/09/16 05:32; Admin Dose 1 TAB; Start at 23:30 RHETT SAUCEDA MD Aug 09, 2016 10:21
[2016-08-09] MEDS ORDERED: VANCOMYCIN IV PER PHARMACY XX SCH (12:30)
[2016-08-09] MEDS ORDERED: VANCOMYCIN 1.75 GM in NS 500 ML IVPB SCH (14:00)
[2016-08-09] MEDS: PIPER-TAZO 3.375 GM IV (PMX) 100 ML IVPB SCH ×2 (14:18→21:26)
[2016-08-09 14:57] LABS: ANA SCREEN NEGATIVE (NEGATIVE)
--- NOTE | 2016-08-09 15:18 | CONS ---
Date/Time of Note Date/Time of Note DATE: 08/09/16 TIME: 15:12 Assessment/Plan Assessment/Plan Chief Complaint/Hosp Course The patient is a 41 year old male with enlarged right inguinal soft tissue density with inflammatory changes suggesting LAD, now s/p US guided core biopsy of right inguinal lymph node on 08/03/16. Final path demonstrates "Histologic and immunophenotypical features compatible with a benign reactive lymph node with focal poorly formed histiocytic granuloma. AFB and GMS stains with appropriate controls, are negative for pathogenic organisms. MRi brain demonstrates no evidence of an acute intracranial process. - CT chest 08/04/16shows mildly enlarged left axillary lymph node that measures up to 3.5 x 1.0 cm in diameter with the visible fatty hilar component. There may lymph nodes within the thorax demonstrate no significant thickening or enlargement. Follow up LLL 4 mm pulmonary nodule in 6 months. -given no evidence of lymphoma, will sign off now now -recommend to repeat imaging in 3 months to re-evaluate the lymphadenopathy. If it is still present or growing we should reconsider biopsy at that time. Will continue to follow Problems: Consultation Date/Type/Reason Admit Date/Time Aug 02, 2016 at 00:22 Initial Consult Date 08/04/16 Type of Consultation: Hematology Reason for Consultation concern for lymphoma Referring Provider: ANTONIO WONG 24 HR Interval Summary Free Text/Dictation pt was started on IV Vancomycin and Zosyn. LN confirmed as benign and reactive Exam/Review of Systems Vital Signs Vitals Vital Signs Date Time Temp Pulse Resp B/P Pulse Ox O2 Delivery O2 Flow Rate FiO2 08/09/16 08:11 98.2 82 18 108/69 98 Room Air Intake and Output 08/08/16 08/08/16 08/09/16 15:00 23:00 07:00 Intake Total 1000 ml 2480 ml 1680 ml Output Total 1250 ml 1800 ml Balance 1000 ml 1230 ml -120 ml Exam Constitutional: alert, oriented Psych: no complaints Head: normocephalic Eyes: nl conjunctiva ENMT: nl external ears & nose Neck: non-tender, supple Respiratory: clear to auscultation, normal air movement Cardiovascular: regular rate and rhythm Gastrointestinal: other (mass in right inguinal area), soft Results Result Diagram: 08/09/16 0500 08/09/16 0500 Results 24 hrs Laboratory Tests Test 08/09/16 05:00 Anion Gap 16 Basophils # 0.0 Basophils % 0.4 Blood Urea Nitrogen 11 Calcium Level 9.0 Carbon Dioxide Level 28 Chloride Level 99 Creatinine 0.88 Eosinophils # 0.2 Eosinophils % 1.6 Glucose Level 100 Hematocrit 37.6 L Hemoglobin 12.7 L Lymphocytes # 1.9 Lymphocytes % 18.7 Mean Corpuscular Hemoglobin 28.2 L Mean Corpuscular Hemoglobin Concent 33.8 Mean Corpuscular Volume 83.4 Mean Platelet Volume 8.3 Monocytes # 1.2 H Monocytes % 11.7 H Neutrophils # 6.8 Neutrophils % 67.1 Nucleated Red Blood Cells # 0.0 Nucleated Red Blood Cells % 0.0 Platelet Count 432 H Potassium Level 4.7 Red Blood Count 4.51 L Red Cell Distribution Width 11.9 Sodium Level 138 White Blood Count 10.2 Medications Medications Current Medications Sodium Chloride (NS) 1,000 ml @ 100 mls/hr Q10H IV Last administered on 08:21; Admin Dose 100 MLS/HR; Start 08/02/16 at 01:23 Ondansetron HCl (Zofran Inj) 4 mg Q6H PRN IV NAUSEA AND/OR VOMITING; Start at 01:30 Morphine Sulfate (morphine) 2 mg Q4H PRN IV SEVERE PAIN LEVEL 7-10 Last administered on 08/06/16 05:59; Admin Dose 2 MG; Start 08/02/16 at 01:30 Acetaminophen (Tylenol Tab) 650 mg Q6H PRN PO PAIN AND OR ELEVATED TEMP Last administered on 08/07/16 23:24; Admin Dose 650 MG; Start 08/03/16 at 11:00 Acetaminophen/ Hydrocodone Bitart 1 tab 1 tab Q6H PRN PO MODERATE PAIN (4-6/10 ) Last administered on 08/09/16 11:38; Admin Dose 1 TAB; Start 08/03/16 at 23: 30 Piperacillin Sod/ Tazobactam Sod 100 ml @ 200 mls/hr Q8 IVPB Last administered on 08/09/16 14:18; Admin Dose 200 MLS/HR; Start 08/09/16 at 14:00 Vancomycin HCl 1.75 gm/Sodium Chloride 500 ml @ 125 mls/hr ONCE IVPB Last administered on 08/09/16 14:57; Admin Dose 125 MLS/HR; Start 08/09/16 at 14:00 ; Stop 08/09/16 at 18:00 Vancomycin HCl/ Sodium Chloride (Vancocin/NS) 250 ml @ 83.333 mls/ hr Q12H IVPB ; Start 08/10/16 at 02:00 HERNANDO AQUINO M.D. Aug 09, 2016 15:18
[2016-08-09 20:00] VITALS: BP 121/73; RESP 18
--- NOTE | 2016-08-09 21:02 | PN ---
DATE: 08/09/2016 SUBJECTIVE: The patient is alert, feels okay, looks comfortable. No fevers. He still has significant amount of pain at his right groin. LABORATORY DATA: WBC today 10.2 with platelets 432, no shift, no bands. BUN 11 , creatinine 0.88. MICROBIOLOGY: Blood and urine culture negative. PHYSICAL EXAMINATION: GENERAL: Well-developed, middle-aged, man who is alert, in no distress. HEENT: Head atraumatic, normocephalic. Sclerae anicteric. Buccal mucosa pink. NECK: Supple. CHEST: Rise symmetrical. Breath sounds clear. HEART: S1, S2. ABDOMEN: Soft. Bowel tones present. EXTREMITIES: Without cyanosis. Right groin palpable mass that is painful on palpation. ASSESSMENT: 1. Febrile illness. 2. Right groin mass with CT of the abdomen and pelvis revealing a large right inguinal soft tissue density with surrounding inflammatory changes, status post needle biopsy with pathology revealing no malignancy. PLAN: The patient remains clinically stable. Again, his cultures had been negative. HIV serology and RPR serology negative. He is being seen by oncology. He still has significant pain at his right groin. We are going to start him on vancomycin and Zosyn for possible abscess. Consider surgical evaluation. Follow hematology/oncology recommendations. Dictated By: LUCAS FIGUEROA REFERRAL CLERK for JILL KING MD NI/NTS Conf#: [id number] DID#: [id number] CC: DOMINIC MARTINEZ MD;*EndCC* MTDD
[2016-08-09 22:17] VITALS: RESP 18
[2016-08-10] MEDS: VANCOMYCIN 1.25 GM in SOD CHLORIDE 0.9% 250 ML IVPB SCH ×2 (01:22→15:05)
[2016-08-10] MEDS: SOD CHLORIDE 0.9% 1,000 ML IV SCH ×4 (01:22→22:17)
[2016-08-10] MEDS: PIPER-TAZO 3.375 GM IV (PMX) 100 ML IVPB SCH ×3 (06:09→22:13)
[2016-08-10 06:35] LABS: ALBUMIN 3.5 g/dl (3.3-4.9); POTASSIUM 4.5 mmol/L (3.5-5.1)
[2016-08-10 06:37] LABS: CREATININE 0.87 mg/dl (0.61-1.24)
[2016-08-10 06:38] LABS: ALBUMIN/GLOBULIN RATIO 0.92; BILIRUBIN,INDIRECT 0.2 mg/dl (0-1.1); BILIRUBIN,TOTAL 0.2 mg/dl (0.2-1.3); TOTAL PROTEIN 7.3 g/dl (6.1-8.1)
[2016-08-10 06:39] LABS: CALCIUM 8.9 mg/dl (8.4-10.2)
[2016-08-10 07:07] VITALS: BP 145/72; RESP 20
--- NOTE | 2016-08-10 14:12 | PN ---
DATE: 08/10/2016 INFECTIOUS DISEASE PROGRESS NOTE SUBJECTIVE: The patient is alert, feels good, looks comfortable. He is afebrile. LABORATORY DATA: No CBC this morning. BUN 11, creatinine 0.87. PHYSICAL EXAMINATION: GENERAL: This is a well-nourished, well-developed, middle-aged man who is alert, in no distress. HEENT: Head atraumatic, normocephalic. Sclerae anicteric. Buccal mucosa pink. NECK: Supple. CHEST: Rise symmetrical. Breath sounds clear. HEART: S1, S2. ABDOMEN: Soft. Bowel sounds present. EXTREMITIES: Without cyanosis. ASSESSMENT: 1. Systemic inflammatory response syndrome with low-grade fevers. 2. Right groin mass ?abscess, status post CT-guided biopsy, pathology revealed no malignancy. PLAN: The patient was started on broad-spectrum antibiotics yesterday. He is clinically stable. We will await for surgical evaluation. Dictated By: LUCAS FIGUEROA RESAW CARRIAGE OPERATOR for JILL GUARDADO/PRERNA Conf#: [id number] DID#: [id number] MTDD
--- NOTE | 2016-08-10 16:55 | PN ---
Date/Time of Note Date/Time of Note DATE: 08/10/16 TIME: 16:50 Assessment/Plan VTE Prophylaxis VTE Prophylaxis Intervention: SCD's Lines/Catheters IV [facility] (from [facility]): Peripheral IV Urinary Cath still in place: No Assessment/Plan Assessment/Plan 1) Right Inguinal Mass Surgery does not feel that the mass is a hernia and has recommended biopsy for evaluation of lymphoma, patient is status post ultrasound guided biopsy Pathology shows a benign reactive lymph node with focal poorly formed histiocytic granuloma. AFB and GMS stains with appropriate controls, are negative for pathogenic organisms Patient still having fevers, infectious workup is negative so far MRI of the brain is negative Oncology consultation appreciated CT chest shows a mildly enlarged left axillary lymph node- [place] wants to wait for the NIGEL and also for the immunohistochemical stains on the right inguinal area biopsy. 2) Fever and Chills ID consulted, Tmax 100.4 in last 24 hour 3) Dysuria UA is negative, RPR is nonreactive Prophylaxis: Ambulation general surgery consulted to evaluate for excision Subjective 24 Hr Interval Summary Free Text/Dictation still c/o right inguinal mass, General surgery consulted Exam/Review of Systems Vital Signs Vitals Vital Signs Date Time Temp Pulse Resp B/P Pulse Ox O2 Delivery O2 Flow Rate FiO2 08/10/16 07:07 99.4 94 20 145/72 96 08/09/16 08:11 Room Air Intake and Output 08/09/16 08/09/16 08/10/16 15:00 23:00 07:00 Intake Total 2410 ml 1670 ml Output Total 2250 ml 2000 ml Balance 160 ml -330 ml Exam Constitutional: alert, oriented Respiratory: clear to auscultation Cardiovascular: regular rate and rhythm Gastrointestinal: soft, No distended Musculoskeletal: nl extremities to inspection Results Result Diagram: 08/09/16 0500 08/10/16 0515 Results 24 hrs Laboratory Tests Test 08/10/16 05:15 Alanine Aminotransferase (ALT/SGPT) 39 Albumin 3.5 Albumin/Globulin Ratio 0.92 Alkaline Phosphatase 87 Anion Gap 16 Aspartate Amino Transf (AST/SGOT) 25 Blood Urea Nitrogen 11 Calcium Level 8.9 Carbon Dioxide Level 27 Chloride Level 99 Creatinine 0.87 Direct Bilirubin 0.00 Globulin 3.80 H Glucose Level 99 Indirect Bilirubin 0.2 Potassium Level 4.5 Sodium Level 137 Total Bilirubin 0.2 Total Protein 7.3 Medications Medications Current Medications Sodium Chloride (NS) 1,000 ml @ 100 mls/hr Q10H IV Last administered on 08:38; Admin Dose 100 MLS/HR; Start 08/02/16 at 01:23 Ondansetron HCl (Zofran Inj) 4 mg Q6H PRN IV NAUSEA AND/OR VOMITING; Start at 01:30 Morphine Sulfate (morphine) 2 mg Q4H PRN IV SEVERE PAIN LEVEL 7-10 Last administered on 08/06/16 05:59; Admin Dose 2 MG; Start 08/02/16 at 01:30 Acetaminophen (Tylenol Tab) 650 mg Q6H PRN PO PAIN AND OR ELEVATED TEMP Last administered on 08/07/16 23:24; Admin Dose 650 MG; Start 08/03/16 at 11:00 Acetaminophen/ Hydrocodone Bitart 1 tab 1 tab Q6H PRN PO MODERATE PAIN (4-6/10 ) Last administered on 08/09/16 21:26; Admin Dose 1 TAB; Start 08/03/16 at 23: 30 Piperacillin Sod/ Tazobactam Sod 100 ml @ 200 mls/hr Q8 IVPB Last administered on 08/10/16 14:04; Admin Dose 200 MLS/HR; Start 08/09/16 at 14:00 Vancomycin HCl/ Sodium Chloride (Vancocin/NS) 250 ml @ 83.333 mls/ hr Q12H IVPB Last administered on 08/10/16 15:05; Admin Dose 83.333 MLS/HR; Start at 02:00 Miscellaneous Information (*Rx Drug Level Order Reminder*) VANCO TROUGH @ 0, 100 ON... ONCE ONCE XX ; Start 08/11/16 at 01:00; Stop 08/11/16 at 01:01 RHETT SAUCEDA MD Aug 10, 2016 16:55
[2016-08-10] MEDS: HYDROCODONE/APAP (5/325) TAB PO PRN (19:35)
[2016-08-10 19:59] VITALS: BP 140/73; RESP 16
--- NOTE | 2016-08-10 23:38 | PN ---
Date/Time of Note Date/Time of Note DATE: 08/10/16 TIME: 23:37 Assessment/Plan Lines/Catheters IV C[facility]ter Type (from [facility]): Peripheral IV Ferrell in Place (from [facility]): No Assessment/Plan Chief Complaint/Hosp Course 1. Right groin lesion s/p needle biopsy but Oncology would like to have a larger sample -bx tomorrow on add on schedule 2. BMI 29 -diet/lifestyle optimization encouraged -weight optimization encouraged 3. Fever curve improving, ? 2nd #1 -as above 4. Dysuria without evidence of infection 5. Anemia, without evidence of bleeding -monitor Thank you, Problems: Subjective 24 Hr Interval Summary Fever and chills improved (low grade last night). No cough. No sz. No rashes. Min pain. No bello/dizzy/visual or neuro changes. No dysuria. No abdominal pain. Exam/Review of Systems Vital Signs Vitals Vital Signs Date Time Temp Pulse Resp B/P Pulse Ox O2 Delivery O2 Flow Rate FiO2 08/10/16 19:59 98.9 87 16 140/73 98 08/09/16 08:11 Room Air Intake and Output 08/09/16 08/09/16 08/10/16 15:00 23:00 07:00 Intake Total 2410 ml 1670 ml Output Total 2250 ml 2000 ml Balance 160 ml -330 ml Exam Constitutional: alert, obese, oriented, No distress Psych: nl mood/affect, No anxiety Head: atraumatic, normocephalic Eyes: EOMI, PERRL, nl conjunctiva, No icteric ENMT: mucosa pink and moist, nl external ears & nose, nl lips & teeth Neck: non-tender, supple, No jvd, No masses Respiratory: normal air movement, No congested cough Cardiovascular: nl pulses, regular rate and rhythm, No edema Gastrointestinal: non-tender, other (Right groin lesion, non reducible, min tender), soft, No distended, No rebound or guarding Musculoskeletal: nl extremities to inspection, No joint tenderness Extremities: normal pulses, No calf tenderness, No cyanosis Neurological: nl mental status, nl speech, nl strength Skin: nl turgor, No diaphoresis, No rash or lesions Lymph: No nl lymph nodes (Right inguinal large lesion/LN), No nontender Results Result Diagram: 08/09/16 0500 08/10/16 0515 TESSY TREJO MD Aug 10, 2016 23:38
[2016-08-11] VITALS (17 sets, daily range): BP systolic 109–146; BP diastolic 69–81; PULSE 70–94; RESP 15–24
[2016-08-11] MEDS: VANCOMYCIN 1.5 GM in SOD CHLORIDE 0.9% 250 ML IVPB SCH ×2 (02:20→15:55)
[2016-08-11] MEDS: SOD CHLORIDE 0.9% 1,000 ML IV SCH ×2 (05:23→14:24)
[2016-08-11] MEDS: PIPER-TAZO 3.375 GM IV (PMX) 100 ML IVPB SCH ×4 (05:46→23:44)
[2016-08-11] MEDS ORDERED: DESFLURANE 15 MIN ONE (07:00)
--- NOTE | 2016-08-11 12:36 | CONS ---
Date/Time of Note Date/Time of Note DATE: 08/11/16 TIME: 12:31 Assessment/Plan Assessment/Plan Chief Complaint/Hosp Course SUBJECTIVE: The patient is alert, feels good, looks comfortable. No fevers PHYSICAL EXAMINATION: GENERAL: This is a well-nourished, well-developed, middle-aged man who is alert, in no distress. HEENT: Head atraumatic, normocephalic. Sclerae anicteric. Buccal mucosa pink. NECK: Supple. CHEST: Rise symmetrical. Breath sounds clear. HEART: S1, S2. ABDOMEN: Soft. Bowel sounds present. EXTREMITIES: Without cyanosis. ASSESSMENT: 1. Systemic inflammatory response syndrome with low-grade fevers==> resolving. 2. Right groin mass, status post CT-guided biopsy, pathology revealed benign reactive lymph node. PLAN: Clinically stable, no fevers. Surgical evaluation noted, pending repeat CT guided bx. Per dw Dr Melo likely infectious DW staff Problems: Consultation Date/Type/Reason Admit Date/Time Aug 02, 2016 at 00:22 Initial Consult Date 08/04/16 Type of Consultation: id Referring Provider: ANTONIO WONG Exam/Review of Systems Vital Signs Vitals Vital Signs Date Time Temp Pulse Resp B/P Pulse Ox O2 Delivery O2 Flow Rate FiO2 08/11/16 07:55 98.3 88 16 119/74 97 08/09/16 08:11 Room Air Intake and Output 08/10/16 08/10/16 08/11/16 15:00 23:00 07:00 Intake Total 100 ml 2410 ml 900 ml Output Total 1950 ml 1100 ml Balance 100 ml 460 ml -200 ml Results Result Diagram: 08/09/16 0500 08/10/16 0515 Results 24 hrs Laboratory Tests Test 08/11/16 00:40 Vancomycin Level Trough 10.3 Medications Medications Current Medications Sodium Chloride (NS) 1,000 ml @ 100 mls/hr Q10H IV Last administered on 22:17; Admin Dose 100 MLS/HR; Start 08/02/16 at 01:23 Ondansetron HCl (Zofran Inj) 4 mg Q6H PRN IV NAUSEA AND/OR VOMITING; Start at 01:30 Morphine Sulfate (morphine) 2 mg Q4H PRN IV SEVERE PAIN LEVEL 7-10 Last administered on 08/06/16 05:59; Admin Dose 2 MG; Start 08/02/16 at 01:30 Acetaminophen (Tylenol Tab) 650 mg Q6H PRN PO PAIN AND OR ELEVATED TEMP Last administered on 08/07/16 23:24; Admin Dose 650 MG; Start 08/03/16 at 11:00 Acetaminophen/ Hydrocodone Bitart 1 tab 1 tab Q6H PRN PO MODERATE PAIN (4-6/10 ) Last administered on 08/10/16 19:35; Admin Dose 1 TAB; Start 08/03/16 at 23: 30 Piperacillin Sod/ Tazobactam Sod 100 ml @ 200 mls/hr Q8 IVPB Last administered on 08/11/16 05:46; Admin Dose 200 MLS/HR; Start 08/09/16 at 14:00 Vancomycin HCl/ Sodium Chloride (Vancocin/NS) 250 ml @ 83.333 mls/ hr Q12H IVPB Last administered on 08/11/16 02:20; Admin Dose 83.333 MLS/HR; Start at 02:00 Miscellaneous Information (*Rx Drug Level Order Reminder*) VANCOMYCIN TROUGH AT 1300 ONCE ONCE XX ; Start 08/12/16 at 13:00; Stop 08/12/16 at 13:01 LUCAS FIGUEROA NP Aug 11, 2016 12:36
--- NOTE | 2016-08-11 14:29 | CONS ---
Date/Time of Note Date/Time of Note DATE: 08/11/16 TIME: 13:43 Assessment/Plan Assessment/Plan Chief Complaint/Hosp Course The patient is a 41 year old male with enlarged right inguinal soft tissue density with inflammatory changes suggesting LAD, now s/p US guided core biopsy of right inguinal lymph node on 08/03/16. Final path demonstrates "Histologic and immunophenotypical features compatible with a benign reactive lymph node with focal poorly formed histiocytic granuloma. AFB and GMS stains with appropriate controls, are negative for pathogenic organisms. MRI. brain demonstrates no evidence of an acute intracranial process. - CT chest 08/04/16shows mildly enlarged left axillary lymph node that measures up to 3.5 x 1.0 cm in diameter with the visible fatty hilar component. There may lymph nodes within the thorax demonstrate no significant thickening or enlargement. Follow up LLL 4 mm pulmonary nodule in 6 months. -recommend to repeat imaging in 3 months to re-evaluate the lymphadenopathy. If it is still present or growing we should reconsider biopsy at that time. -discussed with surgeon Dr. Antonio, agree with excisional bx to ensure there was no sampling error with the biopsy. This will definitively rule in or out a lymphoma Will continue to follow Problems: Consultation Date/Type/Reason Admit Date/Time Aug 02, 2016 at 00:22 Initial Consult Date 08/04/16 Type of Consultation: Hematology Referring Provider: ANTONIO WONG 24 HR Interval Summary Free Text/Dictation The patient states that he is feeling well and denies fevers. Exam/Review of Systems Vital Signs Vitals Vital Signs Date Time Temp Pulse Resp B/P Pulse Ox O2 Delivery O2 Flow Rate FiO2 08/11/16 07:55 98.3 88 16 119/74 97 08/09/16 08:11 Room Air Intake and Output 08/10/16 08/10/16 08/11/16 15:00 23:00 07:00 Intake Total 100 ml 2410 ml 900 ml Output Total 1950 ml 1100 ml Balance 100 ml 460 ml -200 ml Exam Constitutional: alert, oriented Psych: no complaints Head: normocephalic Eyes: nl conjunctiva ENMT: nl external ears & nose Neck: non-tender, supple Respiratory: clear to auscultation, normal air movement Cardiovascular: regular rate and rhythm Gastrointestinal: other (mass in right inguinal area), soft Results Result Diagram: 08/09/16 0500 08/10/16 0515 Results 24 hrs Laboratory Tests Test 08/11/16 00:40 Vancomycin Level Trough 10.3 Medications Medications Current Medications Sodium Chloride (NS) 1,000 ml @ 100 mls/hr Q10H IV Last administered on 22:17; Admin Dose 100 MLS/HR; Start 08/02/16 at 01:23 Ondansetron HCl (Zofran Inj) 4 mg Q6H PRN IV NAUSEA AND/OR VOMITING; Start at 01:30 Morphine Sulfate (morphine) 2 mg Q4H PRN IV SEVERE PAIN LEVEL 7-10 Last administered on 08/06/16 05:59; Admin Dose 2 MG; Start 08/02/16 at 01:30 Acetaminophen (Tylenol Tab) 650 mg Q6H PRN PO PAIN AND OR ELEVATED TEMP Last administered on 08/07/16 23:24; Admin Dose 650 MG; Start 08/03/16 at 11:00 Acetaminophen/ Hydrocodone Bitart 1 tab 1 tab Q6H PRN PO MODERATE PAIN (4-6/10 ) Last administered on 08/10/16 19:35; Admin Dose 1 TAB; Start 08/03/16 at 23: 30 Piperacillin Sod/ Tazobactam Sod 100 ml @ 200 mls/hr Q8 IVPB Last administered on 08/11/16 05:46; Admin Dose 200 MLS/HR; Start 08/09/16 at 14:00 Vancomycin HCl/ Sodium Chloride (Vancocin/NS) 250 ml @ 83.333 mls/ hr Q12H IVPB Last administered on 08/11/16 02:20; Admin Dose 83.333 MLS/HR; Start at 02:00 Miscellaneous Information (*Rx Drug Level Order Reminder*) VANCOMYCIN TROUGH AT 1300 ONCE ONCE XX ; Start 08/12/16 at 13:00; Stop 08/12/16 at 13:01 DAKOTAH PRIDE MD Aug 11, 2016 13:53 DAKOTAH PRIDE MD Aug 11, 2016 13:53
--- NOTE | 2016-08-11 16:18 | PN ---
Date/Time of Note Date/Time of Note DATE: 08/11/16 TIME: 16:17 Assessment/Plan VTE Prophylaxis VTE Prophylaxis Intervention: SCD's, other Lines/Catheters [facility] Peripheral IV Urinary Cath still in place: No Assessment/Plan Assessment/Plan 1) Right Inguinal Mass Surgery does not feel that the mass is a hernia and has recommended biopsy for evaluation of lymphoma, patient is status post ultrasound guided biopsy Pathology shows a benign reactive lymph node with focal poorly formed histiocytic granuloma. AFB and GMS stains with appropriate controls, are negative for pathogenic organisms MRI of the brain is negative Oncology consultation appreciated CT chest shows a mildly enlarged left axillary lymph node- [place] wants to wait for the NIGEL and also for the immunohistochemical stains on the right inguinal area biopsy. Prophylaxis: Ambulation Plan for excisional biopsy today by General surgery today if OR available Subjective 24 Hr Interval Summary Free Text/Dictation afebrile, BP stable, plan for excisional biopsy by General surgery today if OR available Exam/Review of Systems Vital Signs Vitals Vital Signs Date Time Temp Pulse Resp B/P Pulse Ox O2 Delivery O2 Flow Rate FiO2 08/11/16 07:55 98.3 88 16 119/74 97 08/09/16 08:11 Room Air Intake and Output 08/10/16 08/10/16 08/11/16 15:00 23:00 07:00 Intake Total 100 ml 2410 ml 900 ml Output Total 1950 ml 1100 ml Balance 100 ml 460 ml -200 ml Results Result Diagram: 08/09/16 0500 08/10/16 0515 Results 24 hrs Laboratory Tests Test 08/11/16 00:40 Vancomycin Level Trough 10.3 Medications Medications Current Medications Sodium Chloride (NS) 1,000 ml @ 100 mls/hr Q10H IV Last administered on 14:24; Admin Dose 100 MLS/HR; Start 08/02/16 at 01:23 Ondansetron HCl (Zofran Inj) 4 mg Q6H PRN IV NAUSEA AND/OR VOMITING; Start at 01:30 Morphine Sulfate (morphine) 2 mg Q4H PRN IV SEVERE PAIN LEVEL 7-10 Last administered on 08/06/16 05:59; Admin Dose 2 MG; Start 08/02/16 at 01:30 Acetaminophen (Tylenol Tab) 650 mg Q6H PRN PO PAIN AND OR ELEVATED TEMP Last administered on 08/07/16 23:24; Admin Dose 650 MG; Start 08/03/16 at 11:00 Acetaminophen/ Hydrocodone Bitart 1 tab 1 tab Q6H PRN PO MODERATE PAIN (4-6/10 ) Last administered on 08/10/16 19:35; Admin Dose 1 TAB; Start 08/03/16 at 23: 30 Piperacillin Sod/ Tazobactam Sod 100 ml @ 200 mls/hr Q8 IVPB Last administered on 08/11/16 14:33; Admin Dose 200 MLS/HR; Start 08/09/16 at 14:00 Vancomycin HCl/ Sodium Chloride (Vancocin/NS) 250 ml @ 83.333 mls/ hr Q12H IVPB Last administered on 08/11/16 15:55; Admin Dose 83.333 MLS/HR; Start at 02:00 Miscellaneous Information (*Rx Drug Level Order Reminder*) VANCOMYCIN TROUGH AT 1300 ONCE ONCE XX ; Start 08/12/16 at 13:00; Stop 08/12/16 at 13:01 RHETT SAUCEDA MD Aug 11, 2016 16:18
[2016-08-11] MEDS ORDERED: GLYCOPYRROLATE 0.4 MG INJ ONE ×2 (21:18→21:59)
[2016-08-11] MEDS ORDERED: PROPOFOL 20 ML ONE (21:18)
[2016-08-11] MEDS ORDERED: MIDAZOLAM 1 MG/ML 2 ML INJ ONE (21:18)
[2016-08-11] MEDS ORDERED: FENTAnyl 50 MCG/ML VIAL ONE (21:18)
[2016-08-11] MEDS ORDERED: DEXAMETHASONE 4 MG/ML 1 ML INJ ONE (21:18)
[2016-08-11] MEDS ORDERED: SUCCINYLCHOLINE CHLORIDE 100 MG/5 ML SYG IV ONE (21:18)
[2016-08-11] MEDS ORDERED: ONDANSETRON 4 MG INJ ONE (21:19)
--- NOTE | 2016-08-11 21:22 | PN ---
Date/Time of Note Date/Time of Note DATE: 08/11/16 TIME: 21:20 Assessment/Plan Lines/Catheters IV Catheter Type (from [facility]): Peripheral IV Ferrell in Place (from [facility]): No Assessment/Plan Chief Complaint/Hosp Course 1. Right groin lesion s/p needle biopsy but Oncology would like to have a larger sample. Looking possibly infected -excision vs I&D 2. BMI 29 -diet/lifestyle optimization encouraged -weight optimization encouraged 3. Fever curve improving, ? 2nd #1. Improved -as above 4. Dysuria without evidence of infection 5. Anemia, without evidence of bleeding -monitor Thank you, Problems: Subjective 24 Hr Interval Summary No fevers or chills. Blanching erythema right groin. No cough. No sz. No rashes. Min pain. No bello/dizzy/visual or neuro changes. No dysuria. No abdominal pain. Exam/Review of Systems Vital Signs Vitals Vital Signs Date Time Temp Pulse Resp B/P Pulse Ox O2 Delivery O2 Flow Rate FiO2 08/11/16 20:51 98.4 89 18 135/79 99 08/11/16 20:12 Room Air Intake and Output 08/10/16 08/10/16 08/11/16 15:00 23:00 07:00 Intake Total 100 ml 2410 ml 900 ml Output Total 1950 ml 1100 ml Balance 100 ml 460 ml -200 ml Exam Free Text/Dictation Constitutional: alert, obese, oriented, No distress Psych: nl mood/affect, No anxiety Head: atraumatic, normocephalic Eyes: EOMI, PERRL, nl conjunctiva, No icteric ENMT: mucosa pink and moist, nl external ears & nose, nl lips & teeth Neck: non-tender, supple, No jvd, No masses Respiratory: normal air movement, No congested cough Cardiovascular: nl pulses, regular rate and rhythm, No edema Gastrointestinal: non-tender, other (Right groin lesion, non reducible, more tender with blanching erythema), soft, No distended, No rebound or guarding Musculoskeletal: nl extremities to inspection, No joint tenderness Extremities: normal pulses, No calf tenderness, No cyanosis Neurological: nl mental status, nl speech, nl strength Skin: nl turgor, as above Lymph: No nl lymph nodes (Right inguinal large lesion/LN), No nontender Results Result Diagram: 08/09/16 0500 08/10/16 0515 TESSY TREJO MD Aug 11, 2016 21:22
[2016-08-11] MEDS: BUPIVACAINE 0.5%/EPI (SDV) 30 ML INJ ONE ×2 (21:51→22:02)
[2016-08-11] MEDS ORDERED: NEOSTIGMINE 3 MG/3 ML SYRINGE ONE (21:59)
[2016-08-11] MEDS ORDERED: ONDANSETRON 4 MG INJ IV PRN (22:00)
[2016-08-11] MEDS ORDERED: hydrALAzine 20 MG INJ IV PRN (22:00)
[2016-08-11] MEDS ORDERED: EPHEDrine SULFATE 50 MG/5 ML SYG IV PRN (22:00)
[2016-08-11] MEDS ORDERED: morphine (1 MG/ML) 10ML SYRINGE IV PRN ×3 (22:00)
[2016-08-11] MEDS ORDERED: DIPHENHYDRAMINE 50 MG INJ IV PRN (22:00)
[2016-08-11] MEDS ORDERED: MEPERIDINE 25 MG INJ IV PRN (22:00)
[2016-08-11] MEDS ORDERED: FENTAnyl 50 MCG/ML VIAL IV PRN (22:00)
--- NOTE | 2016-08-11 22:16 | OPR ---
Date/Time of Note Date/Time of Note DATE: 08/11/16 TIME: 22:13 Operative Report Procedure Date: Aug 11, 2016 Preoperative Diagnosis Right inguinal lesion and possible abscess Postoperative Diagnosis Right inguinal lymphadenopathy Right inguinal abscess Operation Performed 1. Right inguinal lymph node excisional biopsy 2. Right inguinal incision and drainage of abscess Surgeon: TESSY TREJO MD Anesthesia: general, other (& local) Anesthesiologist: AMENA BLANCO M.D. Estimated Blood Loss: 0 - [address] Culture Tubes/Drains Kerlix and Betadine Complications: None Pt Condition Post Procedure: stable Disposition: PACU Indications Per notes. R/B/A were fully reviewed with [employer] compliance internship as per usual and customary Procedure Description Patient was brought and placed supine on the operating table SCDs were placed and after induction of anesthesia all pressure points were well-padded. He is already on antibiotics. Timeout was performed. Local anesthesia was injected at the incision site. Incision was made along the inguinal ligament and superior to the fascia purulent drainage was identified and culture was sent. Abscess was entered and a large lymph node was also identified at this site. The lymph node was sequentially clamped, tied, and excised from the surrounding tissue. Wound was irrigated with saline to clear suctioning fluid. Complete hemostasis obtained. Wound was packed with Betadine and Kerlix and dressing was applied. Patient was taken back to recovery room in stable condition and all counts were correct at the end of the operation 2. Copies To: CC: JILL KING MD; LUCAS FIGUEROA NP; RHETT SAUCEDA MD; HERNANDO AQUINO M.D., SAMUEL MD Aug 11, 2016 22:16
[2016-08-12 00:05] VITALS: BP 121/75; PULSE 81; RESP 18
[2016-08-12 00:20] VITALS: BP 119/72; PULSE 81; RESP 20
[2016-08-12] MEDS: HYDROCODONE/APAP (5/325) TAB PO PRN ×2 (00:25→09:08)
[2016-08-12] MEDS: SOD CHLORIDE 0.9% 1,000 ML IV SCH ×3 (01:23→13:15)
[2016-08-12] MEDS: VANCOMYCIN 1.5 GM in SOD CHLORIDE 0.9% 250 ML IVPB SCH ×2 (02:20→15:02)
--- NOTE | 2016-08-12 02:27 | CONS ---
DATE OF ADMISSION: 08/02/2016 DATE OF CONSULTATION: 08/09/2016 TYPE OF CONSULTATION: Surgical. REFERRING PHYSICIAN: Gilbert Pham MD CHIEF COMPLAINT: 1. Right groin lesion. 2. Right groin pain. 3. Anemia. 4. Leukocytosis. 5. BMI 29. HISTORY OF PRESENT ILLNESS: Deion Vogt is a 41-year-old male with multiple comorbiditi es who presents with pain in the right groin for the past few days with fevers and chills. The pain has been present for 2 weeks, but worse in the past week. He reported headaches and backache. Als o, nausea and vomiting with dysuria and body aches. He does report night sweats. No chest pain, sh ortness of breath. No significant weight changes. No seizure or rash. Bowel function. No previou s history of the same. No trauma or sick contacts. The patient had initially presented to [facility] and was seen by a surgeon was diagnosed with a hernia and referred to us. The patient's workup h as identified anemia and a CT diagnosis of large right inguinal soft tissue density with surrounding inflammatory changes suggestive of lymphadenopathy. Patient underwent needle-guided biopsy with pa thology compatible with benign reactive lymph node with focal histiocytic granuloma. AFB and gram stains are negative for pathogenic organisms. However, despite the findings, a request is plac ed for a full excisional biopsy at this time. PAST MEDICAL HISTORY: 1. Fevers and chills. 2. Nausea, vomiting. 3. Diaphoresis. 4. Night sweats. 5. Right inguinal lymphadenopathy. 6. BMI 29. 7. Diverticulosis. 8. Anemia. 9. Leukocytosis, resolved. PAST SURGICAL HISTORY: Core needle biopsy of right inguinal lymph node. FAMILY HISTORY: Noncontributory. REVIEW OF SYSTEMS: A 12-point review of systems negative unless addressed in HPI. SOCIAL HISTORY: Denies alcohol, drugs or tobacco. MEDICATIONS: As per MAR. ALLERGIES: None. PHYSICAL EXAMINATION: VITAL SIGNS: Temperature is 100.4, pulse 90s, blood pressure 122/74. GENERAL: Obese. No acute distress. HEENT: Pupils equal, reactive. No scleral icterus. Mucous membranes are somewhat dry. NECK: Supple, no JVD. No crepitus. PULMONARY: Normal respiratory effort. CARDIAC: S1, S2 present. ABDOMEN: Soft, nontender. No rebound, no guarding. Nondistended. Right groin with nonreducible l esion with minimal tenderness. No erythema. VASCULAR: Capillary refill is 2 seconds. NEUROLOGIC: Alert, oriented, moves all 4 extremities. PSYCHIATRIC: Normal affect. LABORATORY AND RADIOGRAPHIC: As per chart and HPI. ASSESSMENT AND PLAN: 1. Right inguinal lymphadenopathy with a benign core needle biopsy; however, request is placed for full excisional biopsy. We will schedule patient for biopsy. 2. BMI 29. The patient is highly encouraged to optimize his nutrition and exercise to improve his overall health status. 3. Fevers and chills, improving. Continue as above. Continue antibiotics since this may be an inf ectious versus an inflammatory process versus malignancy. 4. Dysuria without evidence of infection. 5. Anemia without evidence of acute blood loss, continue monitoring. Thank you very much for consulting me in this patient's care. Dictated By: TESSY GENTILE/PRERNA Conf#: [id number] DID#: [id number]
--- NOTE | 2016-08-12 02:32 | PN ---
Date/Time of Note Date/Time of Note DATE: 08/12/16 TIME: 02:31 Assessment/Plan Lines/Catheters IV Catheter Type (from [facility]): Peripheral IV Ferrell in Place (from [facility]): No Assessment/Plan Chief Complaint/Hosp Course 1. Right groin abscess s/p I&D and LN bx 08/11 -abx -wound care -await path 2. BMI 29 -diet/lifestyle optimization encouraged -weight optimization encouraged 3. Fever curve improving, ? 2nd #1. Improved -as above 4. Dysuria without evidence of infection 5. Anemia, without evidence of bleeding -monitor Thank you, Problems: Subjective 24 Hr Interval Summary s/p LN bx and I&D of right inguinal abscess 08/11. Groin pain. No fevers or chills. No cough. No sz. No rashes. Min pain. No bello/dizzy/visual or neuro changes. No dysuria. No abdominal pain. Exam/Review of Systems Vital Signs Vitals Vital Signs Date Time Temp Pulse Resp B/P Pulse Ox O2 Delivery O2 Flow Rate FiO2 08/13/16 19:45 98.0 74 18 125/78 98 08/12/16 00:20 Room Air Intake and Output 08/12/16 08/12/16 08/13/16 15:00 23:00 07:00 Intake Total 700 ml 1830 ml 1202 ml Output Total 950 ml 1200 ml Balance 700 ml 880 ml 2 ml Exam Free Text/Dictation Constitutional: alert, obese, oriented, No distress Psych: nl mood/affect, No anxiety Head: atraumatic, normocephalic Eyes: EOMI, PERRL, nl conjunctiva, No icteric ENMT: mucosa pink and moist, nl external ears & nose, nl lips & teeth Neck: non-tender, supple, No jvd, No masses Respiratory: normal air movement, No congested cough Cardiovascular: nl pulses, regular rate and rhythm, No edema Gastrointestinal: non-tender, other (Right groin wound, packed), soft, No distended, No rebound or guarding Musculoskeletal: nl extremities to inspection, No joint tenderness Extremities: normal pulses, No calf tenderness, No cyanosis Neurological: nl mental status, nl speech, nl strength Skin: nl turgor, as above Lymph: No nl lymph nodes (Right inguinal large lesion/LN), No nontender Results Result Diagram: 08/13/16 0510 08/13/16 0510 TESSY TREJO MD Aug 12, 2016 02:32
[2016-08-12 05:31] LABS: ADD SCAN DIFF NO
[2016-08-12 05:53] LABS: CREATININE 0.85 mg/dl (0.61-1.24)
[2016-08-12 05:56] LABS: ALBUMIN 3.3 g/dl (3.3-4.9); BASOPHILS % 0.2 % (0.0-2.0); EOSINOPHILS % 0.1 % (0.0-7.0); HEMATOCRIT 37.7 % (42.0-52.0); HEMOGLOBIN 12.5 g/dl (14.0-18.0); LYMPHOCYTES # 1.2 10^3/ul (0.8-2.9); LYMPHOCYTES % 13.7 % (15.0-51.0); MEAN CORPUSCULAR HEMOGLOBIN 27.6 pg (29.0-33.0); MEAN CORPUSCULAR HGB CONC 33.2 g/dl (32.0-37.0); MEAN CORPUSCULAR VOLUME 83.2 fl (82.0-101.0); MEAN PLATELET VOLUME 8.2 fl (7.4-10.4); MONOCYTE # 0.7 10^3/ul (0.3-0.9); MONOCYTES % 7.3 % (0.0-11.0); NEUTROPHIL # 7.1 10^3/ul (1.6-7.5); NEUTROPHILS % 78.4 % (39.0-77.0); PLATELET COUNT 505 10^3/UL (140-415); POTASSIUM 4.7 mmol/L (3.5-5.1); RED BLOOD COUNT 4.53 10^6/ul (4.70-6.10); RED CELL DISTRIBUTION WIDTH 11.9 % (11.5-14.5)
[2016-08-12] MEDS: PIPER-TAZO 3.375 GM IV (PMX) 100 ML IVPB SCH ×3 (05:56→21:57)
[2016-08-12 05:58] LABS: CREATININE 0.89 mg/dl (0.61-1.24)
[2016-08-12 05:59] LABS: ALBUMIN/GLOBULIN RATIO 0.86; BILIRUBIN,INDIRECT 0.1 mg/dl (0-1.1); BILIRUBIN,TOTAL 0.1 mg/dl (0.2-1.3); CALCIUM 9.2 mg/dl (8.4-10.2); TOTAL PROTEIN 7.1 g/dl (6.1-8.1)
[2016-08-12 07:48] VITALS: BP 100/69; RESP 18
[2016-08-12] MEDS: SODIUM HYPOCHLORITE 0.125% 473 ML BTL IRR SCH (09:23)
--- NOTE | 2016-08-12 13:43 | CONS ---
Date/Time of Note Date/Time of Note DATE: 08/12/16 TIME: 13:40 Assessment/Plan Assessment/Plan Chief Complaint/Hosp Course SUBJECTIVE: The patient is alert, feels much better. No fevers Abx: Bartolome Washburn PHYSICAL EXAMINATION: GENERAL: This is a well-nourished, well-developed, middle-aged man who is alert, in no distress. HEENT: Head atraumatic, normocephalic. Sclerae anicteric. Buccal mucosa pink. NECK: Supple. CHEST: Rise symmetrical. Breath sounds clear. HEART: S1, S2. ABDOMEN: Soft. Bowel sounds present. EXTREMITIES: Without cyanosis. ASSESSMENT: 1. Systemic inflammatory response syndrome with low-grade fevers==> resolving. 2. Right groin abscess, status post i&d===> CT-guided biopsy revealed no malignancy. PLAN: Stable, continue abx, f/u final cx, surgical rec-s. DW staff Problems: Consultation Date/Type/Reason Admit Date/Time Aug 02, 2016 at 00:22 Initial Consult Date 08/04/16 Type of Consultation: id Referring Provider: ANTONIO WONG Exam/Review of Systems Vital Signs Vitals Vital Signs Date Time Temp Pulse Resp B/P Pulse Ox O2 Delivery O2 Flow Rate FiO2 08/12/16 07:48 97.5 72 18 100/69 97 08/12/16 00:20 Room Air Intake and Output 08/11/16 08/11/16 08/12/16 15:00 23:00 07:00 Intake Total 980 ml 1010 ml Output Total 1310 ml 1500 ml Balance -330 ml -490 ml Results Result Diagram: 08/12/16 0525 08/12/16 0525 Results 24 hrs Laboratory Tests Test 08/12/16 05:25 08/12/16 08:11 White Blood Count 9.0 Red Blood Count 4.53 L Hemoglobin 12.5 L Hematocrit 37.7 L Mean Corpuscular Volume 83.2 Mean Corpuscular Hemoglobin 27.6 L Mean Corpuscular Hemoglobin Concent 33.2 Red Cell Distribution Width 11.9 Platelet Count 505 H Mean Platelet Volume 8.2 Neutrophils % 78.4 H Lymphocytes % 13.7 L Monocytes % 7.3 Eosinophils % 0.1 Basophils % 0.2 Nucleated Red Blood Cells % 0.0 Neutrophils # 7.1 Lymphocytes # 1.2 Monocytes # 0.7 Eosinophils # 0.0 Basophils # 0.0 Nucleated Red Blood Cells # 0.0 Sodium Level 140 Potassium Level 4.7 Chloride Level 102 Carbon Dioxide Level 27 Anion Gap 16 Blood Urea Nitrogen 14 Creatinine 0.89 Glucose Level 146 Calcium Level 9.2 Total Bilirubin 0.1 L Direct Bilirubin 0.00 Indirect Bilirubin 0.1 Aspartate Amino Transf (AST/SGOT) 20 Alanine Aminotransferase (ALT/SGPT) 34 Alkaline Phosphatase 72 Total Protein 7.1 Albumin 3.3 Globulin 3.80 H Albumin/Globulin Ratio 0.86 Lab Scanned Report REFERENCE LAB Medications Medications Current Medications Sodium Chloride (NS) 1,000 ml @ 100 mls/hr Q10H IV Last administered on 13:15; Admin Dose 100 MLS/HR; Start 08/02/16 at 01:23 Ondansetron HCl (Zofran Inj) 4 mg Q6H PRN IV NAUSEA AND/OR VOMITING; Start at 01:30 Morphine Sulfate (morphine) 2 mg Q4H PRN IV SEVERE PAIN LEVEL 7-10 Last administered on 08/06/16 05:59; Admin Dose 2 MG; Start 08/02/16 at 01:30 Acetaminophen (Tylenol Tab) 650 mg Q6H PRN PO PAIN AND OR ELEVATED TEMP Last administered on 08/07/16 23:24; Admin Dose 650 MG; Start 08/03/16 at 11:00 Acetaminophen/ Hydrocodone Bitart 1 tab 1 tab Q6H PRN PO MODERATE PAIN (4-6/10 ) Last administered on 08/12/16 09:08; Admin Dose 1 TAB; Start 08/03/16 at 23: 30 Piperacillin Sod/ Tazobactam Sod 100 ml @ 200 mls/hr Q8 IVPB Last administered on 08/12/16 13:15; Admin Dose 200 MLS/HR; Start 08/09/16 at 14:00 Vancomycin HCl/ Sodium Chloride (Vancocin/NS) 250 ml @ 83.333 mls/ hr Q12H IVPB Last administered on 08/12/16 02:20; Admin Dose 83.333 MLS/HR; Start at 02:00 Sodium Hypochlorite (Dakin'S (1/4 Strength)) 1 applic DAILY IRR Last administered on 3/23/17at 09:23; Admin Dose 1 APPLIC; Start 08/12/16 at 09:00 LUCAS FIGUEROA NP Aug 12, 2016 13:42
--- NOTE | 2016-08-12 15:25 | CONS ---
Date/Time of Note Date/Time of Note DATE: 08/12/16 TIME: 15:23 Assessment/Plan Assessment/Plan Chief Complaint/Hosp Course The patient is a 41 year old male with enlarged right inguinal soft tissue density with inflammatory changes suggesting LAD, now s/p US guided core biopsy of right inguinal lymph node on 08/03/16. Final path demonstrates "Histologic and immunophenotypical features compatible with a benign reactive lymph node with focal poorly formed histiocytic granuloma. AFB and GMS stains with appropriate controls, are negative for pathogenic organisms. MRI brain demonstrates no evidence of an acute intracranial process. - CT chest 08/04/16shows mildly enlarged left axillary lymph node that measures up to 3.5 x 1.0 cm in diameter with the visible fatty hilar component. There may lymph nodes within the thorax demonstrate no significant thickening or enlargement. Follow up LLL 4 mm pulmonary nodule in 6 months. -recommend to repeat imaging in 3 months to re-evaluate the lymphadenopathy. If it is still present or growing we should reconsider biopsy at that time. -s/p excisional bx 08/11/16, patient found to have large LN and abscess at site, which was drained, biopsied and packed. F/u final path. -mild thrombocytosis noted, likely reactive. Problems: Consultation Date/Type/Reason Admit Date/Time Aug 02, 2016 at 00:22 Initial Consult Date 08/04/16 Type of Consultation: Hematology/Oncology Referring Provider: ANTNOIO WONG 24 HR Interval Summary Free Text/Dictation Patient feels well, no fevers. Exam/Review of Systems Vital Signs Vitals Vital Signs Date Time Temp Pulse Resp B/P Pulse Ox O2 Delivery O2 Flow Rate FiO2 08/12/16 07:48 97.5 72 18 100/69 97 08/12/16 00:20 Room Air Intake and Output 08/11/16 08/11/16 08/12/16 15:00 23:00 07:00 Intake Total 980 ml 1010 ml Output Total 1310 ml 1500 ml Balance -330 ml -490 ml Exam Constitutional: alert, oriented Psych: no complaints Head: normocephalic Eyes: nl conjunctiva ENMT: nl external ears & nose Neck: non-tender, supple Respiratory: clear to auscultation, normal air movement Cardiovascular: regular rate and rhythm Gastrointestinal: other (mass in right inguinal area), soft Results Result Diagram: 08/12/16 0525 08/12/16 0525 Results 24 hrs Laboratory Tests Test 08/12/16 05:25 08/12/16 08:11 08/12/16 13:20 White Blood Count 9.0 Red Blood Count 4.53 L Hemoglobin 12.5 L Hematocrit 37.7 L Mean Corpuscular Volume 83.2 Mean Corpuscular Hemoglobin 27.6 L Mean Corpuscular Hemoglobin Concent 33.2 Red Cell Distribution Width 11.9 Platelet Count 505 H Mean Platelet Volume 8.2 Neutrophils % 78.4 H Lymphocytes % 13.7 L Monocytes % 7.3 Eosinophils % 0.1 Basophils % 0.2 Nucleated Red Blood Cells % 0.0 Neutrophils # 7.1 Lymphocytes # 1.2 Monocytes # 0.7 Eosinophils # 0.0 Basophils # 0.0 Nucleated Red Blood Cells # 0.0 Sodium Level 140 Potassium Level 4.7 Chloride Level 102 Carbon Dioxide Level 27 Anion Gap 16 Blood Urea Nitrogen 14 Creatinine 0.89 Glucose Level 146 Calcium Level 9.2 Total Bilirubin 0.1 L Direct Bilirubin 0.00 Indirect Bilirubin 0.1 Aspartate Amino Transf (AST/SGOT) 20 Alanine Aminotransferase (ALT/SGPT) 34 Alkaline Phosphatase 72 Total Protein 7.1 Albumin 3.3 Globulin 3.80 H Albumin/Globulin Ratio 0.86 Lab Scanned Report REFERENCE LAB Vancomycin Level Trough 13.6 Medications Medications Current Medications Sodium Chloride (NS) 1,000 ml @ 100 mls/hr Q10H IV Last administered on 13:15; Admin Dose 100 MLS/HR; Start 08/02/16 at 01:23 Ondansetron HCl (Zofran Inj) 4 mg Q6H PRN IV NAUSEA AND/OR VOMITING; Start at 01:30 Morphine Sulfate (morphine) 2 mg Q4H PRN IV SEVERE PAIN LEVEL 7-10 Last administered on 08/06/16 05:59; Admin Dose 2 MG; Start 08/02/16 at 01:30 Acetaminophen (Tylenol Tab) 650 mg Q6H PRN PO PAIN AND OR ELEVATED TEMP Last administered on 08/07/16 23:24; Admin Dose 650 MG; Start 08/03/16 at 11:00 Acetaminophen/ Hydrocodone Bitart 1 tab 1 tab Q6H PRN PO MODERATE PAIN (4-6/10 ) Last administered on 08/12/16 09:08; Admin Dose 1 TAB; Start 08/03/16 at 23: 30 Piperacillin Sod/ Tazobactam Sod 100 ml @ 200 mls/hr Q8 IVPB Last administered on 08/12/16 13:15; Admin Dose 200 MLS/HR; Start 08/09/16 at 14:00 Vancomycin HCl/ Sodium Chloride (Vancocin/NS) 250 ml @ 83.333 mls/ hr Q12H IVPB Last administered on 08/12/16 15:02; Admin Dose 83.333 MLS/HR; Start at 02:00 Sodium Hypochlorite (Dakin'S (1/4 Strength)) 1 applic DAILY IRR Last administered on 08/12/16 09:23; Admin Dose 1 APPLIC; Start 08/12/16 at 09:00 TODAKOTAH MD Aug 12, 2016 15:25
[2016-08-12] MEDS: morphine 2 MG INJ IV PRN (16:47)
--- NOTE | 2016-08-12 18:45 | PN ---
Date/Time of Note Date/Time of Note DATE: 08/12/16 TIME: 18:43 Assessment/Plan VTE Prophylaxis VTE Prophylaxis Intervention: SCD's Lines/Catheters [facility] Peripheral IV Urinary Cath still in place: No Assessment/Plan Assessment/Plan 1. Systemic inflammatory response syndrome with low-grade fevers==> resolving. 2. Right groin abscess, s/p Right inguinal lymph node excisional biopsy, Right inguinal incision and drainage of abscess ===> CT-guided biopsy revealed no malignancy. PLAN: Stable, continue abx, f/u final cx, surgical rec-s Pain control SCD for DVT Subjective 24 Hr Interval Summary Free Text/Dictation s/p 1. Right inguinal lymph node excisional biopsy, Right inguinal incision and drainage of abscess ,c/o right groin pain Exam/Review of Systems Vital Signs Vitals Vital Signs Date Time Temp Pulse Resp B/P Pulse Ox O2 Delivery O2 Flow Rate FiO2 08/12/16 07:48 97.5 72 18 100/69 97 08/12/16 00:20 Room Air Intake and Output 08/11/16 08/11/16 08/12/16 15:00 23:00 07:00 Intake Total 980 ml 1010 ml Output Total 1310 ml 1500 ml Balance -330 ml -490 ml Exam GENERAL: This is a well-nourished, well-developed, middle-aged man who is alert, in no distress. HEENT: Head atraumatic, normocephalic. Sclerae anicteric. Buccal mucosa pink. NECK: Supple. CHEST: Rise symmetrical. Breath sounds clear. HEART: S1, S2. ABDOMEN: Soft. Bowel sounds present. EXTREMITIES: Without cyanosis. Results Result Diagram: 08/12/16 0525 08/12/16 0525 Results 24 hrs Laboratory Tests Test 08/12/16 05:25 08/12/16 08:11 08/12/16 13:20 White Blood Count 9.0 Red Blood Count 4.53 L Hemoglobin 12.5 L Hematocrit 37.7 L Mean Corpuscular Volume 83.2 Mean Corpuscular Hemoglobin 27.6 L Mean Corpuscular Hemoglobin Concent 33.2 Red Cell Distribution Width 11.9 Platelet Count 505 H Mean Platelet Volume 8.2 Neutrophils % 78.4 H Lymphocytes % 13.7 L Monocytes % 7.3 Eosinophils % 0.1 Basophils % 0.2 Nucleated Red Blood Cells % 0.0 Neutrophils # 7.1 Lymphocytes # 1.2 Monocytes # 0.7 Eosinophils # 0.0 Basophils # 0.0 Nucleated Red Blood Cells # 0.0 Sodium Level 140 Potassium Level 4.7 Chloride Level 102 Carbon Dioxide Level 27 Anion Gap 16 Blood Urea Nitrogen 14 Creatinine 0.89 Glucose Level 146 Calcium Level 9.2 Total Bilirubin 0.1 L Direct Bilirubin 0.00 Indirect Bilirubin 0.1 Aspartate Amino Transf (AST/SGOT) 20 Alanine Aminotransferase (ALT/SGPT) 34 Alkaline Phosphatase 72 Total Protein 7.1 Albumin 3.3 Globulin 3.80 H Albumin/Globulin Ratio 0.86 Lab Scanned Report REFERENCE LAB Vancomycin Level Trough 13.6 Medications Medications Current Medications Sodium Chloride (NS) 1,000 ml @ 100 mls/hr Q10H IV Last administered on 13:15; Admin Dose 100 MLS/HR; Start 08/02/16 at 01:23 Ondansetron HCl (Zofran Inj) 4 mg Q6H PRN IV NAUSEA AND/OR VOMITING; Start at 01:30 Morphine Sulfate (morphine) 2 mg Q4H PRN IV SEVERE PAIN LEVEL 7-10 Last administered on 08/12/16 16:47; Admin Dose 2 MG; Start 08/02/16 at 01:30 Acetaminophen (Tylenol Tab) 650 mg Q6H PRN PO PAIN AND OR ELEVATED TEMP Last administered on 08/07/16 23:24; Admin Dose 650 MG; Start 08/03/16 at 11:00 Acetaminophen/ Hydrocodone Bitart 1 tab 1 tab Q6H PRN PO MODERATE PAIN (4-6/10 ) Last administered on 08/12/16 09:08; Admin Dose 1 TAB; Start 08/03/16 at 23: 30 Piperacillin Sod/ Tazobactam Sod 100 ml @ 200 mls/hr Q8 IVPB Last administered on 08/12/16 13:15; Admin Dose 200 MLS/HR; Start 08/09/16 at 14:00 Vancomycin HCl/ Sodium Chloride (Vancocin/NS) 250 ml @ 83.333 mls/ hr Q12H IVPB Last administered on 08/12/16 15:02; Admin Dose 83.333 MLS/HR; Start at 02:00 Sodium Hypochlorite (Dakin'S (1/4 Strength)) 1 applic DAILY IRR Last administered on 08/12/16t 09:23; Admin Dose 1 APPLIC; Start 08/12/16 at 09:00 RHETT SAUCEDA MD Aug 12, 2016 18:45
[2016-08-12 19:39] VITALS: BP 129/74; RESP 18
[2016-08-13] MEDS: morphine 2 MG INJ IV PRN ×2 (00:38→10:38)
[2016-08-13] MEDS: VANCOMYCIN 1.5 GM in SOD CHLORIDE 0.9% 250 ML IVPB SCH (02:08)
[2016-08-13 05:29] LABS: ADD SCAN DIFF NO
[2016-08-13 05:55] LABS: BASOPHILS % 0.4 % (0.0-2.0); EOSINOPHILS # 0.2 10^3/ul (0.0-0.5); EOSINOPHILS % 2.3 % (0.0-7.0); HEMATOCRIT 38.4 % (42.0-52.0); HEMOGLOBIN 12.6 g/dl (14.0-18.0); LYMPHOCYTES % 26.6 % (15.0-51.0); MEAN CORPUSCULAR HEMOGLOBIN 27.8 pg (29.0-33.0); MEAN CORPUSCULAR HGB CONC 32.8 g/dl (32.0-37.0); MEAN CORPUSCULAR VOLUME 84.6 fl (82.0-101.0); MEAN PLATELET VOLUME 8.3 fl (7.4-10.4); MONOCYTE # 0.9 10^3/ul (0.3-0.9); MONOCYTES % 12.3 % (0.0-11.0); NEUTROPHIL # 4.2 10^3/ul (1.6-7.5); NEUTROPHILS % 57.9 % (39.0-77.0); PLATELET COUNT 468 10^3/UL (140-415); RED BLOOD COUNT 4.54 10^6/ul (4.70-6.10); RED CELL DISTRIBUTION WIDTH 12.2 % (11.5-14.5); WHITE BLOOD COUNT 7.3 10^3/ul (4.8-10.8)
[2016-08-13 06:01] LABS: POTASSIUM 4.3 mmol/L (3.5-5.1)
[2016-08-13 06:03] LABS: INR 1.01; PROTIME 13.3 Sec (12.2-14.2)
[2016-08-13 06:04] LABS: CREATININE 1.02 mg/dl (0.61-1.24)
[2016-08-13 06:05] LABS: PARTIAL THROMBOPLASTIN TIME 35.6 Sec (25.0-35.0)
[2016-08-13] MEDS: PIPER-TAZO 3.375 GM IV (PMX) 100 ML IVPB SCH ×3 (06:05→21:46)
[2016-08-13 07:00] VITALS: BP 120/72; RESP 18
[2016-08-13] MEDS: SOD CHLORIDE 0.9% 1,000 ML IV SCH ×2 (09:40→17:23)
[2016-08-13] MEDS: SODIUM HYPOCHLORITE 0.125% 473 ML BTL IRR SCH (09:41)
--- NOTE | 2016-08-13 11:42 | CONS ---
Date/Time of Note Date/Time of Note DATE: 08/13/16 TIME: 11:41 Assessment/Plan Assessment/Plan Chief Complaint/Hosp Course SUBJECTIVE: The patient is alert, feels much better. No fevers Abx: Bartolome Washburn PHYSICAL EXAMINATION: GENERAL: This is a well-nourished, well-developed, middle-aged man who is alert, in no distress. HEENT: Head atraumatic, normocephalic. Sclerae anicteric. Buccal mucosa pink. NECK: Supple. CHEST: Rise symmetrical. Breath sounds clear. HEART: S1, S2. ABDOMEN: Soft. Bowel sounds present. EXTREMITIES: Without cyanosis. ASSESSMENT: 1. Systemic inflammatory response syndrome with low-grade fevers==> resolving. 2. Right groin abscess, status post i&d===> CT-guided biopsy revealed no malignancy. PLAN: Remains stable, continue abx, f/u final cx, surgical rec-s. DW staff Problems: Consultation Date/Type/Reason Admit Date/Time Aug 02, 2016 at 00:22 Initial Consult Date 08/04/16 Type of Consultation: id Referring Provider: ANTONIO WONG Exam/Review of Systems Vital Signs Vitals Vital Signs Date Time Temp Pulse Resp B/P Pulse Ox O2 Delivery O2 Flow Rate FiO2 08/13/16 07:00 97.6 70 18 120/72 98 08/12/16 00:20 Room Air Intake and Output 08/12/16 08/12/16 08/13/16 15:00 23:00 07:00 Intake Total 700 ml 1830 ml 1202 ml Output Total 950 ml 1200 ml Balance 700 ml 880 ml 2 ml Results Result Diagram: 08/13/16 0510 08/13/16 0510 Results 24 hrs Laboratory Tests Test 08/12/16 13:20 08/13/16 05:10 Vancomycin Level Trough 13.6 White Blood Count 7.3 Red Blood Count 4.54 L Hemoglobin 12.6 L Hematocrit 38.4 L Mean Corpuscular Volume 84.6 Mean Corpuscular Hemoglobin 27.8 L Mean Corpuscular Hemoglobin Concent 32.8 Red Cell Distribution Width 12.2 Platelet Count 468 H Mean Platelet Volume 8.3 Neutrophils % 57.9 Lymphocytes % 26.6 Monocytes % 12.3 H Eosinophils % 2.3 Basophils % 0.4 Nucleated Red Blood Cells % 0.0 Neutrophils # 4.2 Lymphocytes # 2.0 Monocytes # 0.9 Eosinophils # 0.2 Basophils # 0.0 Nucleated Red Blood Cells # 0.0 Prothrombin Time 13.3 Prothrombin Time Ratio 1.0 INR International Normalized Ratio 1.01 Activated Partial Thromboplast Time 35.6 H Sodium Level 144 Potassium Level 4.3 Chloride Level 105 Carbon Dioxide Level 28 Anion Gap 15 Blood Urea Nitrogen 10 Creatinine 1.02 Glucose Level 105 # Calcium Level 9.0 Medications Medications Current Medications Sodium Chloride (NS) 1,000 ml @ 100 mls/hr Q10H IV Last administered on 09:40; Admin Dose 100 MLS/HR; Start 08/02/16 at 01:23 Ondansetron HCl (Zofran Inj) 4 mg Q6H PRN IV NAUSEA AND/OR VOMITING; Start at 01:30 Morphine Sulfate (morphine) 2 mg Q4H PRN IV SEVERE PAIN LEVEL 7-10 Last administered on 08/13/16 10:38; Admin Dose 2 MG; Start 08/02/16 at 01:30 Acetaminophen (Tylenol Tab) 650 mg Q6H PRN PO PAIN AND OR ELEVATED TEMP Last administered on 08/07/16 23:24; Admin Dose 650 MG; Start 08/03/16 at 11:00 Acetaminophen/ Hydrocodone Bitart 1 tab 1 tab Q6H PRN PO MODERATE PAIN (4-6/10 ) Last administered on 08/12/16 09:08; Admin Dose 1 TAB; Start 08/03/16 at 23: 30 Piperacillin Sod/ Tazobactam Sod (Zosyn 3.375gm/ 100 ml (Pmx)) 100 ml @ 200 mls /hr Q8 IVPB Last administered on 08/13/16 06:05; Admin Dose 200 MLS/HR; Start 08/09/16 at 14:00 Sodium Hypochlorite 1 applic 1 applic DAILY IRR Last administered on 08/13/16 09:41; Admin Dose 1 APPLIC; Start 08/12/16 at 09:00 Vancomycin HCl/ Sodium Chloride (Vancocin/NS) 250 ml @ 83.333 mls/ hr Q12H IVPB ; Start 08/13/16 at 14:00 LUCAS FIGUEROA NP Aug 13, 2016 11:42
--- NOTE | 2016-08-13 12:29 | PN ---
Date/Time of Note Date/Time of Note DATE: 08/13/16 TIME: 12:27 Assessment/Plan VTE Prophylaxis VTE Prophylaxis Intervention: SCD's Lines/Catheters IV Catheter Type (from Nrs): Peripheral IV Urinary Cath still in place: No Assessment/Plan Assessment/Plan 1. Systemic inflammatory response syndrome with low-grade fevers==> resolving. 2. Right groin abscess, s/p Right inguinal lymph node excisional biopsy, s/p Right inguinal incision and drainage of abscess PLAN: Stable, continue abx, f/u final cx,, IV abx , excisional biopsy report pending Pain control SCD for DVT Subjective 24 Hr Interval Summary Free Text/Dictation wound cx pending, pain 6/10, need dressing change Exam/Review of Systems Vital Signs Vitals Vital Signs Date Time Temp Pulse Resp B/P Pulse Ox O2 Delivery O2 Flow Rate FiO2 08/13/16 07:00 97.6 70 18 120/72 98 08/12/16 00:20 Room Air Intake and Output 08/12/16 08/12/16 08/13/16 15:00 23:00 07:00 Intake Total 700 ml 1830 ml 1202 ml Output Total 950 ml 1200 ml Balance 700 ml 880 ml 2 ml Exam GENERAL: This is a well-nourished, well-developed, middle-aged man who is alert, in no distress. HEENT: Head atraumatic, normocephalic. Sclerae anicteric. Buccal mucosa pink. NECK: Supple. CHEST: Rise symmetrical. Breath sounds clear. HEART: S1, S2. ABDOMEN: Soft. Bowel sounds present. EXTREMITIES: Without cyanosis. Results Result Diagram: 08/13/16 0510 08/13/16 0510 Results 24 hrs Laboratory Tests Test 08/12/16 13:20 08/13/16 05:10 Vancomycin Level Trough 13.6 White Blood Count 7.3 Red Blood Count 4.54 L Hemoglobin 12.6 L Hematocrit 38.4 L Mean Corpuscular Volume 84.6 Mean Corpuscular Hemoglobin 27.8 L Mean Corpuscular Hemoglobin Concent 32.8 Red Cell Distribution Width 12.2 Platelet Count 468 H Mean Platelet Volume 8.3 Neutrophils % 57.9 Lymphocytes % 26.6 Monocytes % 12.3 H Eosinophils % 2.3 Basophils % 0.4 Nucleated Red Blood Cells % 0.0 Neutrophils # 4.2 Lymphocytes # 2.0 Monocytes # 0.9 Eosinophils # 0.2 Basophils # 0.0 Nucleated Red Blood Cells # 0.0 Prothrombin Time 13.3 Prothrombin Time Ratio 1.0 INR International Normalized Ratio 1.01 Activated Partial Thromboplast Time 35.6 H Sodium Level 144 Potassium Level 4.3 Chloride Level 105 Carbon Dioxide Level 28 Anion Gap 15 Blood Urea Nitrogen 10 Creatinine 1.02 Glucose Level 105 # Calcium Level 9.0 Medications Medications Current Medications Sodium Chloride (NS) 1,000 ml @ 100 mls/hr Q10H IV Last administered on 09:40; Admin Dose 100 MLS/HR; Start 08/02/16 at 01:23 Ondansetron HCl (Zofran Inj) 4 mg Q6H PRN IV NAUSEA AND/OR VOMITING; Start at 01:30 Morphine Sulfate (morphine) 2 mg Q4H PRN IV SEVERE PAIN LEVEL 7-10 Last administered on 08/13/16 10:38; Admin Dose 2 MG; Start 08/02/16 at 01:30 Acetaminophen (Tylenol Tab) 650 mg Q6H PRN PO PAIN AND OR ELEVATED TEMP Last administered on 08/07/16 23:24; Admin Dose 650 MG; Start 08/03/16 at 11:00 Acetaminophen/ Hydrocodone Bitart 1 tab 1 tab Q6H PRN PO MODERATE PAIN (4-6/10 ) Last administered on 08/12/16 09:08; Admin Dose 1 TAB; Start 08/03/16 at 23: 30 Piperacillin Sod/ Tazobactam Sod (Zosyn 3.375gm/ 100 ml (Pmx)) 100 ml @ 200 mls /hr Q8 IVPB Last administered on 08/13/16 06:05; Admin Dose 200 MLS/HR; Start 08/09/16 at 14:00 Sodium Hypochlorite 1 applic 1 applic DAILY IRR Last administered on 08/13/16 09:41; Admin Dose 1 APPLIC; Start 08/12/16 at 09:00 Vancomycin HCl/ Sodium Chloride (Vancocin/NS) 250 ml @ 83.333 mls/ hr Q12H IVPB ; Start 08/13/16 at 14:00 RHETT SAUCEDA MD Aug 13, 2016 12:29
--- NOTE | 2016-08-13 14:29 | CONS ---
Date/Time of Note Date/Time of Note DATE: 08/13/16 TIME: 14:28 Assessment/Plan Assessment/Plan Chief Complaint/Hosp Course The patient is a 41 year old male with enlarged right inguinal soft tissue density with inflammatory changes suggesting LAD, now s/p US guided core biopsy of right inguinal lymph node on 08/03/16. Final path demonstrates "Histologic and immunophenotypical features compatible with a benign reactive lymph node with focal poorly formed histiocytic granuloma. AFB and GMS stains with appropriate controls, are negative for pathogenic organisms. MRI brain demonstrates no evidence of an acute intracranial process. - CT chest 08/04/16shows mildly enlarged left axillary lymph node that measures up to 3.5 x 1.0 cm in diameter with the visible fatty hilar component. There may lymph nodes within the thorax demonstrate no significant thickening or enlargement. Follow up LLL 4 mm pulmonary nodule in 6 months. -recommend to repeat imaging in 3 months to re-evaluate the lymphadenopathy. If it is still present or growing we should reconsider biopsy at that time. -s/p excisional bx 08/11/16, patient found to have large LN and abscess at site, which was drained, biopsied and packed. Patient on vancomycin. Pending path report, however discussed with pathologist and is benign, consistent with necrotizing granuloma with microabscesses, possible cat scratch disease, pending Bartonella Henselae stains as well as AFB and fungal stains. -mild thrombocytosis noted, likely reactive. Will sign off, please call with questions or concerns. Problems: Consultation Date/Type/Reason Admit Date/Time Aug 02, 2016 at 00:22 Initial Consult Date 08/04/16 Type of Consultation: Hematology/Oncology Referring Provider: ANTONIO WONG 24 HR Interval Summary Free Text/Dictation Patient doing well, denies fevers or other symptoms. Exam/Review of Systems Vital Signs Vitals Vital Signs Date Time Temp Pulse Resp B/P Pulse Ox O2 Delivery O2 Flow Rate FiO2 08/13/16 07:00 97.6 70 18 120/72 98 08/12/16 00:20 Room Air Intake and Output 08/12/16 08/12/16 08/13/16 15:00 23:00 07:00 Intake Total 700 ml 1830 ml 1202 ml Output Total 950 ml 1200 ml Balance 700 ml 880 ml 2 ml Exam Constitutional: alert, oriented Psych: no complaints Head: normocephalic Eyes: nl conjunctiva ENMT: nl external ears & nose Neck: non-tender, supple Respiratory: clear to auscultation, normal air movement Cardiovascular: regular rate and rhythm Gastrointestinal: other (mass in right inguinal area), soft Results Result Diagram: 08/13/16 0510 08/13/16 0510 Results 24 hrs Laboratory Tests Test 08/13/16 05:10 White Blood Count 7.3 Red Blood Count 4.54 L Hemoglobin 12.6 L Hematocrit 38.4 L Mean Corpuscular Volume 84.6 Mean Corpuscular Hemoglobin 27.8 L Mean Corpuscular Hemoglobin Concent 32.8 Red Cell Distribution Width 12.2 Platelet Count 468 H Mean Platelet Volume 8.3 Neutrophils % 57.9 Lymphocytes % 26.6 Monocytes % 12.3 H Eosinophils % 2.3 Basophils % 0.4 Nucleated Red Blood Cells % 0.0 Neutrophils # 4.2 Lymphocytes # 2.0 Monocytes # 0.9 Eosinophils # 0.2 Basophils # 0.0 Nucleated Red Blood Cells # 0.0 Prothrombin Time 13.3 Prothrombin Time Ratio 1.0 INR International Normalized Ratio 1.01 Activated Partial Thromboplast Time 35.6 H Sodium Level 144 Potassium Level 4.3 Chloride Level 105 Carbon Dioxide Level 28 Anion Gap 15 Blood Urea Nitrogen 10 Creatinine 1.02 Glucose Level 105 # Calcium Level 9.0 Medications Medications Current Medications Sodium Chloride (NS) 1,000 ml @ 100 mls/hr Q10H IV Last administered on 09:40; Admin Dose 100 MLS/HR; Start 08/02/16 at 01:23 Ondansetron HCl (Zofran Inj) 4 mg Q6H PRN IV NAUSEA AND/OR VOMITING; Start at 01:30 Morphine Sulfate (morphine) 2 mg Q4H PRN IV SEVERE PAIN LEVEL 7-10 Last administered on 08/13/16 10:38; Admin Dose 2 MG; Start 08/02/16 at 01:30 Acetaminophen (Tylenol Tab) 650 mg Q6H PRN PO PAIN AND OR ELEVATED TEMP Last administered on 08/07/16 23:24; Admin Dose 650 MG; Start 08/03/16 at 11:00 Acetaminophen/ Hydrocodone Bitart 1 tab 1 tab Q6H PRN PO MODERATE PAIN (4-6/10 ) Last administered on 08/12/16 09:08; Admin Dose 1 TAB; Start 08/03/16 at 23: 30 Piperacillin Sod/ Tazobactam Sod (Zosyn 3.375gm/ 100 ml (Pmx)) 100 ml @ 200 mls /hr Q8 IVPB Last administered on 08/13/16 13:19; Admin Dose 200 MLS/HR; Start 08/09/16 at 14:00 Sodium Hypochlorite 1 applic 1 applic DAILY IRR Last administered on 08/13/16 09:41; Admin Dose 1 APPLIC; Start 08/12/16 at 09:00 Vancomycin HCl/ Sodium Chloride (Vancocin/NS) 250 ml @ 83.333 mls/ hr Q12H IVPB ; Start 08/13/16 at 14:00 TODAKOTAH MD Aug 13, 2016 14:29
[2016-08-13] MEDS: VANCOMYCIN 1.25 GM in SOD CHLORIDE 0.9% 250 ML IVPB SCH (14:37)
[2016-08-13 19:45] VITALS: BP 125/78; RESP 18
--- NOTE | 2016-08-13 19:49 | PN ---
Date/Time of Note Date/Time of Note DATE: 08/13/16 TIME: 19:49 Assessment/Plan Lines/Catheters IV Catheter Type (from Nrs): Peripheral IV Ferrell in Place (from Nrs): No Assessment/Plan Chief Complaint/Hosp Course 1. Right groin abscess s/p I&D and LN bx 08/11 -abx -wound care -await path 2. BMI 29 -diet/lifestyle optimization encouraged -weight optimization encouraged 3. Fever curve improving, ? 2nd #1. Improved -as above 4. Dysuria without evidence of infection 5. Anemia, without evidence of bleeding -monitor Thank you, Problems: Subjective 24 Hr Interval Summary s/p LN bx and I&D of right inguinal abscess 08/11. Groin pain improved. No fevers or chills. No cough. No sz. No rashes. Min pain. No bello/dizzy/visual or neuro changes. No dysuria. No abdominal pain. Exam/Review of Systems Vital Signs Vitals Vital Signs Date Time Temp Pulse Resp B/P Pulse Ox O2 Delivery O2 Flow Rate FiO2 08/13/16 19:45 98.0 74 18 125/78 98 08/12/16 00:20 Room Air Intake and Output 08/12/16 08/12/16 08/13/16 15:00 23:00 07:00 Intake Total 700 ml 1830 ml 1202 ml Output Total 950 ml 1200 ml Balance 700 ml 880 ml 2 ml Results Result Diagram: 08/13/16 0510 08/13/16 0510 TESSY TREJO MD Aug 13, 2016 19:49
[2016-08-14] MEDS: SOD CHLORIDE 0.9% 1,000 ML IV SCH ×5 (01:31→23:23)
[2016-08-14] MEDS: VANCOMYCIN 1.25 GM in SOD CHLORIDE 0.9% 250 ML IVPB SCH ×2 (02:12→14:20)
[2016-08-14] MEDS: PIPER-TAZO 3.375 GM IV (PMX) 100 ML IVPB SCH ×3 (05:48→22:06)
[2016-08-14] MEDS: morphine 2 MG INJ IV PRN (05:48)
[2016-08-14 06:47] LABS: CREATININE 1.05 mg/dl (0.61-1.24)
[2016-08-14 07:49] VITALS: BP 116/81; RESP 18
[2016-08-14] MEDS: SODIUM HYPOCHLORITE 0.125% 473 ML BTL IRR SCH (13:19)
[2016-08-14] MEDS: HYDROCODONE/APAP (5/325) TAB PO PRN (13:19)
--- NOTE | 2016-08-14 13:28 | PN ---
Date/Time of Note Date/Time of Note DATE: 08/14/16 TIME: 13:27 Assessment/Plan VTE Prophylaxis VTE Prophylaxis Intervention: SCD's Lines/Catheters IV [facility]from [facility] [place] Urinary Cath still in place: No Assessment/Plan Assessment/Plan 1. Systemic inflammatory response syndrome with low-grade fevers==> resolving. 2. Right groin abscess, s/p Right inguinal lymph node excisional biopsy, s/p Right inguinal incision and drainage of abscess PLAN: Stable, continue abx, f/u final cx,, IV abx , excisional biopsy report pending Pain control SCD for DVT Subjective 24 Hr Interval Summary Free Text/Dictation wound cx negative so far, gettign wound care Exam/Review of Systems Vital Signs Vitals Vital Signs Date Time Temp Pulse Resp B/P Pulse Ox O2 Delivery O2 Flow Rate FiO2 08/14/16 07:49 98.8 18 116/81 99 08/13/16 19:45 74 08/12/16 00:20 Room Air Intake and Output 08/13/16 08/13/16 08/14/16 15:00 23:00 07:00 Intake Total 200 ml 2110 ml 1170 ml Output Total 1300 ml 1200 ml Balance 200 ml 810 ml -30 ml Exam GENERAL: This is a well-nourished, well-developed, middle-aged man who is alert, in no distress. HEENT: Head atraumatic, normocephalic. Sclerae anicteric. Buccal mucosa pink. NECK: Supple. CHEST: Rise symmetrical. Breath sounds clear. HEART: S1, S2. ABDOMEN: Soft. Bowel sounds present. EXTREMITIES: Without cyanosis. Results Result Diagram: 08/13/16 0510 08/14/16 0522 Results 24 hrs Laboratory Tests Test 08/14/16 05:22 Blood Urea Nitrogen 10 Creatinine 1.05 Medications Medications Current Medications Sodium Chloride (NS) 1,000 ml @ 100 mls/hr Q10H IV Last administered on t 01:31; Admin Dose 100 MLS/HR; Start 08/02/16 at 01:23 Ondansetron HCl (Zofran Inj) 4 mg Q6H PRN IV NAUSEA AND/OR VOMITING; Start at 01:30 Morphine Sulfate (morphine) 2 mg Q4H PRN IV SEVERE PAIN LEVEL 7-10 Last administered on 08/14/16 05:48; Admin Dose 2 MG; Start 08/02/16 at 01:30 Acetaminophen (Tylenol Tab) 650 mg Q6H PRN PO PAIN AND OR ELEVATED TEMP Last administered on 08/07/16 23:24; Admin Dose 650 MG; Start 08/03/16 at 11:00 Acetaminophen/ Hydrocodone Bitart 1 tab 1 tab Q6H PRN PO MODERATE PAIN (4-6/10 ) Last administered on 08/14/16 13:19; Admin Dose 1 TAB; Start 08/03/16 at 23: 30 Piperacillin Sod/ Tazobactam Sod (Zosyn 3.375gm/ 100 ml (Pmx)) 100 ml @ 200 mls /hr Q8 IVPB Last administered on 08/14/16 13:18; Admin Dose 200 MLS/HR; Start 08/09/16 at 14:00 Sodium Hypochlorite 1 applic 1 applic DAILY IRR Last administered on 08/14/16 13:19; Admin Dose 1 APPLIC; Start 08/12/16 at 09:00 Vancomycin HCl/ Sodium Chloride (Vancocin/NS) 250 ml @ 83.333 mls/ hr Q12H IVPB Last administered on 08/14/16 02:12; Admin Dose 83.333 MLS/HR; Start at 14:00 Miscellaneous Information (*Rx Drug Level Order Reminder*) VANCOMYCIN TROUGH AT 0100 ONCE ONCE XX ; Start 08/15/16 at 01:00; Stop 08/15/16 at 01:01 RHETT SAUCEDA MD Aug 14, 2016 13:28
--- NOTE | 2016-08-14 15:09 | PN ---
Date/Time of Note Date/Time of Note DATE: 08/14/16 TIME: 15:08 Assessment/Plan Lines/Catheters IV Catheter Type (from [facility]): Peripheral IV Ferrell in Place (from [facility]): No Assessment/Plan Chief Complaint/Hosp Course 1. Right groin abscess s/p I&D and LN bx 08/11 -abx -wound care -await path -nutritional optimization -vit c 2. BMI 29 -diet/lifestyle optimization encouraged -weight optimization encouraged 3. Fever curve improved 4. Dysuria without evidence of infection 5. Anemia, without evidence of bleeding -monitor Thank you, Problems: Subjective 24 Hr Interval Summary s/p LN bx and I&D of right inguinal abscess 08/11. Groin pain. No fevers or chills. No cough. No sz. No rashes. Min pain. No bello/dizzy/visual or neuro changes. No dysuria. No abdominal pain. Exam/Review of Systems Vital Signs Vitals Vital Signs Date Time Temp Pulse Resp B/P Pulse Ox O2 Delivery O2 Flow Rate FiO2 08/14/16 07:49 98.8 18 116/81 99 08/13/16 19:45 74 08/12/16 00:20 Room Air Intake and Output 08/13/16 08/13/16 08/14/16 15:00 23:00 07:00 Intake Total 200 ml 2110 ml 1170 ml Output Total 1300 ml 1200 ml Balance 200 ml 810 ml -30 ml Exam Free Text/Dictation Constitutional: alert, obese, oriented, No distress Psych: nl mood/affect, No anxiety Head: atraumatic, normocephalic Eyes: EOMI, PERRL, nl conjunctiva, No icteric ENMT: mucosa pink and moist, nl external ears & nose, nl lips & teeth Neck: non-tender, supple, No jvd, No masses Respiratory: normal air movement, No congested cough Cardiovascular: nl pulses, regular rate and rhythm, No edema Gastrointestinal: non-tender, other (Right groin wound, packed), soft, No distended, No rebound or guarding Musculoskeletal: nl extremities to inspection, No joint tenderness Extremities: normal pulses, No calf tenderness, No cyanosis Neurological: nl mental status, nl speech, nl strength Skin: nl turgor, as above Lymph: No nl lymph nodes (Right inguinal large lesion/LN), No nontender Results Result Diagram: 08/13/16 0510 08/14/16 0522 TESSY TREJO MD Aug 14, 2016 15:09
--- NOTE | 2016-08-14 16:48 | CONS ---
Date/Time of Note Date/Time of Note DATE: 08/14/16 TIME: 16:48 Assessment/Plan Assessment/Plan Chief Complaint/Hosp Course ID PROGRESS NOTE CURRENT ABX=> #6 Vanco IV + Zosyn 24H INTERVAL SUMMARY * Awake, alert -- "Much Mejor" (much better in Urdu) and gives me thumbs up smiling. * Groin without pain PHYSICAL EXAMINATION: GENERAL:VSS, NAD HEENT: Unremarkable NECK: Supple, trachea midline. CHEST: Rise symmetrical, without dyspnea on observation HEART: Pulse RRR ABDOMEN: soft EXTREMITIES: Warm ID ASSESSMENT 41 yo M admit with: 1. Systemic inflammatory response syndrome with low-grade fevers, ESR 90=> RESOLVED 2. Right groin abscess, status post i&d 08/12/15 w/Micro (-) 3. 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 -- No malignancy is identified. COMMENT: Cat-scratch lymphadenitis is considered in the differential diagnosis. AFB, GMS and Warthin Starry stains will be performed and results will be issued in a final report. * S/P 08/03/16 R-LN BX: AFB and GMS stains with appropriate controls, are negative for pathogenic organisms INVASIVES: PIV ABX ALLERGY: KNDA CURRENT ABX: => #6 Vanco IV + Zosyn ID RECOMMENDATIONS 1. Continue current ABX = appears final patho report from 08/11/16 pending 2. Observe over the weekend on ABX -> Reassess by ID team next week Problems: Consultation Date/Type/Reason Admit Date/Time Aug 02, 2016 at 00:22 Initial Consult Date 08/04/16 Type of Consultation: ID Referring Provider: ANTONIO WONG Exam/Review of Systems Vital Signs Vitals Vital Signs Date Time Temp Pulse Resp B/P Pulse Ox O2 Delivery O2 Flow Rate FiO2 08/14/16 07:49 98.8 18 116/81 99 08/13/16 19:45 74 08/12/16 00:20 Room Air Intake and Output 08/13/16 08/13/16 08/14/16 15:00 23:00 07:00 Intake Total 200 ml 2110 ml 1170 ml Output Total 1300 ml 1200 ml Balance 200 ml 810 ml -30 ml Results Result Diagram: 08/13/16 0510 08/14/16 0522 Results 24 hrs Laboratory Tests Test 08/14/16 05:22 Blood Urea Nitrogen 10 Creatinine 1.05 Medications Medications Current Medications Sodium Chloride (NS) 1,000 ml @ 100 mls/hr Q10H IV Last administered on 01:31; Admin Dose 100 MLS/HR; Start 08/02/16 at 01:23 Ondansetron HCl (Zofran Inj) 4 mg Q6H PRN IV NAUSEA AND/OR VOMITING; Start at 01:30 Morphine Sulfate (morphine) 2 mg Q4H PRN IV SEVERE PAIN LEVEL 7-10 Last administered on 08/14/16 05:48; Admin Dose 2 MG; Start 08/02/16 at 01:30 Acetaminophen (Tylenol Tab) 650 mg Q6H PRN PO PAIN AND OR ELEVATED TEMP Last administered on 08/07/16 23:24; Admin Dose 650 MG; Start 08/03/16 at 11:00 Acetaminophen/ Hydrocodone Bitart 1 tab 1 tab Q6H PRN PO MODERATE PAIN (4-6/10 ) Last administered on 08/14/16 13:19; Admin Dose 1 TAB; Start 08/03/16 at 23: 30 Piperacillin Sod/ Tazobactam Sod (Zosyn 3.375gm/ 100 ml (Pmx)) 100 ml @ 200 mls /hr Q8 IVPB Last administered on 08/14/16 13:18; Admin Dose 200 MLS/HR; Start 08/09/16 at 14:00 Sodium Hypochlorite 1 applic 1 applic DAILY IRR Last administered on 08/14/16 13:19; Admin Dose 1 APPLIC; Start 08/12/16 at 09:00 Vancomycin HCl/ Sodium Chloride (Vancocin/NS) 250 ml @ 83.333 mls/ hr Q12H IVPB Last administered on 08/14/16 14:20; Admin Dose 83.333 MLS/HR; Start at 14:00 Miscellaneous Information (*Rx Drug Level Order Reminder*) VANCOMYCIN TROUGH AT 0100 ONCE ONCE XX ; Start 08/15/16 at 01:00; Stop 08/15/16 at 01:01 SANTIAGO HANKS NP Aug 14, 2016 16:48
[2016-08-14 20:18] VITALS: BP 128/81; PULSE 81; RESP 18
[2016-08-15] MEDS: VANCOMYCIN 1.25 GM in SOD CHLORIDE 0.9% 250 ML IVPB SCH (02:30)
[2016-08-15] MEDS: PIPER-TAZO 3.375 GM IV (PMX) 100 ML IVPB SCH ×2 (05:30→13:43)
[2016-08-15 07:39] VITALS: BP 136/82; RESP 18
[2016-08-15 07:46] VITALS: BP 119/70; RESP 18
[2016-08-15] MEDS: SOD CHLORIDE 0.9% 1,000 ML IV SCH ×3 (09:22→19:23)
[2016-08-15] MEDS: SODIUM HYPOCHLORITE 0.125% 473 ML BTL IRR SCH (11:40)
[2016-08-15] MEDS: HYDROCODONE/APAP (5/325) TAB PO PRN (11:41)
[2016-08-15] MEDS ORDERED: VANCOMYCIN 1 GM in NS 250 ML IVPB SCH (14:00)
--- NOTE | 2016-08-15 16:40 | PN ---
Date/Time of Note Date/Time of Note DATE: 08/15/16 TIME: 16:38 Assessment/Plan VTE Prophylaxis VTE Prophylaxis Intervention: SCD's Lines/Catheters IV C[facility] Type [facility]from [facility] Peripheral IV Urinary Cath still in place: No Assessment/Plan Assessment/Plan 1. Systemic inflammatory response syndrome with low-grade fevers, ESR 90=> RESOLVED 2. Right groin abscess, status post i&d 08/12/15 w/Micro (-) 3. 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 -- No malignancy is identified. COMMENT: Cat-scratch lymphadenitis is considered in the differential diagnosis. AFB, GMS and Warthin Starry stains will be performed and results will be issued in a final report. * S/P 08/03/16 R-LN BX: AFB and GMS stains with appropriate controls, are negative for pathogenic organisms Subjective 24 Hr Interval Summary Free Text/Dictation afebrile, c/o right groin pain, no complaints, BP stable, Excisional Bx showed granulomatous necrotizing Exam/Review of Systems Vital Signs Vitals Vital Signs Date Time Temp Pulse Resp B/P Pulse Ox O2 Delivery O2 Flow Rate FiO2 08/15/16 07:46 98.1 65 18 119/70 97 08/14/16 20:18 Room Air Intake and Output 08/14/16 08/14/16 08/15/16 15:00 23:00 07:00 Intake Total 100 ml 2510 ml 1750 ml Output Total 300 ml 1650 ml 400 ml Balance -200 ml 860 ml 1350 ml Exam GENERAL: alert, awake HEENT: Head atraumatic, normocephalic. Sclerae anicteric. Buccal mucosa pink. NECK: Supple. CHEST: Rise symmetrical. Breath sounds clear. HEART: S1, S2. ABDOMEN: Soft. Bowel sounds present. EXTREMITIES: Without cyanosis. Results Result Diagram: 08/13/16 0510 08/14/16 0522 Results 24 hrs Laboratory Tests Test 08/15/16 01:03 Vancomycin Level Trough 15.8 Medications Medications Current Medications Sodium Chloride (NS) 1,000 ml @ 100 mls/hr Q10H IV Last administered on 13:43; Admin Dose 100 MLS/HR; Start 08/02/16 at 01:23 Ondansetron HCl (Zofran Inj) 4 mg Q6H PRN IV NAUSEA AND/OR VOMITING; Start at 01:30 Morphine Sulfate (morphine) 2 mg Q4H PRN IV SEVERE PAIN LEVEL 7-10 Last administered on 08/14/16 05:48; Admin Dose 2 MG; Start 08/02/16 at 01:30 Acetaminophen (Tylenol Tab) 650 mg Q6H PRN PO PAIN AND OR ELEVATED TEMP Last administered on 08/07/16 23:24; Admin Dose 650 MG; Start 08/03/16 at 11:00 Acetaminophen/ Hydrocodone Bitart 1 tab 1 tab Q6H PRN PO MODERATE PAIN (4-6/10 ) Last administered on 08/15/16 11:41; Admin Dose 1 TAB; Start 08/03/16 at 23: 30 Piperacillin Sod/ Tazobactam Sod (Zosyn 3.375gm/ 100 ml (Pmx)) 100 ml @ 200 mls /hr Q8 IVPB Last administered on 08/15/16 13:43; Admin Dose 200 MLS/HR; Start 08/09/16 at 14:00 Sodium Hypochlorite 1 applic 1 applic DAILY IRR Last administered on 08/15/16 11:40; Admin Dose 1 APPLIC; Start 08/12/16 at 09:00 Vancomycin HCl (Vancocin) 250 ml @ 125 mls/hr Q12H IVPB Last administered on 14:38; Admin Dose 125 MLS/HR; Start 08/15/16 at 14:00 RHETT SAUCEDA MD Aug 15, 2016 16:40
--- NOTE | 2016-08-15 18:52 | PN ---
Date/Time of Note Date/Time of Note DATE: 08/15/16 TIME: 18:51 Assessment/Plan Lines/Catheters IV Catheter Type (from Nrs): Peripheral IV Ferrell in Place (from Nrs): No Assessment/Plan Chief Complaint/Hosp Course 1. Right groin abscess s/p I&D and LN bx 08/11 -abx -wound care -nutritional optimization -vit c -outpt follow up in wound clinic for wound care 2. BMI 29 -diet/lifestyle optimization encouraged -weight optimization encouraged 3. Fever curve improved 4. Dysuria without evidence of infection 5. Anemia, without evidence of bleeding -monitor Thank you, Problems: Subjective 24 Hr Interval Summary s/p LN bx and I&D of right inguinal abscess 08/11. Groin pain improved. No fevers or chills. No cough. No sz. No rashes. No bello/dizzy/visual or neuro changes. No dysuria. No abdominal pain. Exam/Review of Systems Vital Signs Vitals Vital Signs Date Time Temp Pulse Resp B/P Pulse Ox O2 Delivery O2 Flow Rate FiO2 08/15/16 07:46 98.1 65 18 119/70 97 08/14/16 20:18 Room Air Intake and Output 08/14/16 08/14/16 08/15/16 15:00 23:00 07:00 Intake Total 100 ml 2510 ml 1750 ml Output Total 300 ml 1650 ml 400 ml Balance -200 ml 860 ml 1350 ml Exam Free Text/Dictation Constitutional: alert, obese, oriented, No distress Psych: nl mood/affect, No anxiety Head: atraumatic, normocephalic Eyes: EOMI, PERRL, nl conjunctiva, No icteric ENMT: mucosa pink and moist, nl external ears & nose, nl lips & teeth Neck: non-tender, supple, No jvd, No masses Respiratory: normal air movement, No congested cough Cardiovascular: nl pulses, regular rate and rhythm, No edema Gastrointestinal: non-tender, other (Right groin wound, packed), soft, No distended, No rebound or guarding Musculoskeletal: nl extremities to inspection, No joint tenderness Extremities: normal pulses, No calf tenderness, No cyanosis Neurological: nl mental status, nl speech, nl strength Skin: nl turgor, as above Lymph: No nl lymph nodes (Right inguinal large lesion/LN), No nontender Results Result Diagram: 08/13/16 0510 08/14/16 0522 TESSY TREJO MD Aug 15, 2016 18:52
[2016-08-15 19:29] VITALS: BP 128/78; RESP 16
[2016-08-15] MEDS ORDERED: CIPROFLOXACIN 500 MG TAB PO ONE (20:16)
--- NOTE | 2016-08-15 20:18 | CONS ---
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 -- No malignancy is identified. PHYSICAL EXAMINATION: GENERAL:VSS, NAD HEENT: Unremarkable NECK: Supple, trachea midline. CHEST: Rise symmetrical, without dyspnea on observation HEART: Pulse RRR ABDOMEN: soft EXTREMITIES: Warm ID ASSESSMENT 41 yo M admit with: 1. Systemic inflammatory response syndrome with low-grade fevers, ESR 90=> RESOLVED 2. Right groin abscess, status post i&d 08/12/15 w/Micro (-) 3. 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 -- No malignancy is identified. COMMENT: Cat-scratch lymphadenitis is considered in the differential diagnosis. AFB, GMS and Warthin Starry stains will be performed and results will be issued in a final report. * S/P 08/03/16 R-LN BX: AFB and GMS stains with appropriate controls, are negative for pathogenic organisms INVASIVES: PIV ABX ALLERGY: KNDA CURRENT ABX: => #7 Vanco IV + Zosyn ID RECOMMENDATIONS 1. Continue current ABX = appears final patho report from 08/11/16 pending * COMMENT: Cat-scratch lymphadenitis is considered in the differential diagnosis= Warthin Starry stains pending 2. ABX of choice for concern possibility of Cat Scratch Lymphadenitis are: Doxy , Cipro, Bactrim, Azith, Gent * Patient is stable -> will change ABX to po Doxy BID + Cipro BID and DC to outpatient wound care f/u Problems: Consultation Date/Type/Reason Admit Date/Time Aug 02, 2016 at 00:22 Initial Consult Date 08/04/16 Type of Consultation: ID Referring Provider: ANTONIO WONG Exam/Review of Systems Vital Signs Vitals Vital Signs Date Time Temp Pulse Resp B/P Pulse Ox O2 Delivery O2 Flow Rate FiO2 08/15/16 19:29 98.6 76 16 128/78 98 08/14/16 20:18 Room Air Intake and Output 08/14/16 08/14/16 08/15/16 15:00 23:00 07:00 Intake Total 100 ml 2510 ml 1750 ml Output Total 300 ml 1650 ml 400 ml Balance -200 ml 860 ml 1350 ml Results Result Diagram: 08/13/16 0510 08/14/16 0522 Results 24 hrs Laboratory Tests Test 08/15/16 01:03 Vancomycin Level Trough 15.8 Medications Medications Current Medications Sodium Chloride (NS) 1,000 ml @ 100 mls/hr Q10H IV Last administered on 13:43; Admin Dose 100 MLS/HR; Start 08/02/16 at 01:23 Ondansetron HCl (Zofran Inj) 4 mg Q6H PRN IV NAUSEA AND/OR VOMITING; Start at 01:30 Morphine Sulfate (morphine) 2 mg Q4H PRN IV SEVERE PAIN LEVEL 7-10 Last administered on 08/14/16 05:48; Admin Dose 2 MG; Start 08/02/16 at 01:30 Acetaminophen (Tylenol Tab) 650 mg Q6H PRN PO PAIN AND OR ELEVATED TEMP Last administered on 08/07/16 23:24; Admin Dose 650 MG; Start 08/03/16 at 11:00 Acetaminophen/ Hydrocodone Bitart 1 tab 1 tab Q6H PRN PO MODERATE PAIN (4-6/10 ) Last administered on 08/15/16 11:41; Admin Dose 1 TAB; Start 08/03/16 at 23: 30 Piperacillin Sod/ Tazobactam Sod (Zosyn 3.375gm/ 100 ml (Pmx)) 100 ml @ 200 mls /hr Q8 IVPB Last administered on 08/15/16 13:43; Admin Dose 200 MLS/HR; Start 08/09/16 at 14:00 Sodium Hypochlorite 1 applic 1 applic DAILY IRR Last administered on 08/15/16 11:40; Admin Dose 1 APPLIC; Start 08/12/16 at 09:00 Vancomycin HCl (Vancocin) 250 ml @ 125 mls/hr Q12H IVPB Last administered on t 14:38; Admin Dose 125 MLS/HR; Start 08/15/16 at 14:00 SANTIAGO HANKS NP Aug 15, 2016 20:16
[2016-08-15] MEDS: DOXYCYCLINE 100 MG TAB PO SCH (20:44)
[2016-08-16] MEDS: SOD CHLORIDE 0.9% 1,000 ML IV SCH ×3 (01:41→15:23)
[2016-08-16] MEDS: CIPROFLOXACIN 500 MG TAB PO SCH ×2 (05:35→18:07)
[2016-08-16 05:55] LABS: ADD SCAN DIFF NO; BASOPHIL # 0.1 10^3/ul (0.0-0.1); BASOPHILS % 0.8 % (0.0-2.0); EOSINOPHILS # 0.2 10^3/ul (0.0-0.5); EOSINOPHILS % 3.5 % (0.0-7.0); HEMATOCRIT 35.9 % (42.0-52.0); HEMOGLOBIN 11.7 g/dl (14.0-18.0); LYMPHOCYTES # 1.7 10^3/ul (0.8-2.9); LYMPHOCYTES % 26.6 % (15.0-51.0); MEAN CORPUSCULAR HEMOGLOBIN 27.5 pg (29.0-33.0); MEAN CORPUSCULAR HGB CONC 32.6 g/dl (32.0-37.0); MEAN CORPUSCULAR VOLUME 84.5 fl (82.0-101.0); MEAN PLATELET VOLUME 8.3 fl (7.4-10.4); MONOCYTE # 0.7 10^3/ul (0.3-0.9); MONOCYTES % 11.1 % (0.0-11.0); NEUTROPHIL # 3.8 10^3/ul (1.6-7.5); NEUTROPHILS % 57.7 % (39.0-77.0); PLATELET COUNT 457 10^3/UL (140-415); RED BLOOD COUNT 4.25 10^6/ul (4.70-6.10); RED CELL DISTRIBUTION WIDTH 12.2 % (11.5-14.5); WHITE BLOOD COUNT 6.5 10^3/ul (4.8-10.8)
[2016-08-16 06:12] LABS: INR 0.97; PROTIME 12.9 Sec (12.2-14.2)
[2016-08-16 06:13] LABS: PARTIAL THROMBOPLASTIN TIME 37.2 Sec (25.0-35.0)
[2016-08-16 06:22] LABS: ALBUMIN 3.3 g/dl (3.3-4.9); POTASSIUM 4.2 mmol/L (3.5-5.1)
[2016-08-16 06:25] LABS: ALBUMIN/GLOBULIN RATIO 0.97; BILIRUBIN,INDIRECT 0.1 mg/dl (0-1.1); BILIRUBIN,TOTAL 0.1 mg/dl (0.2-1.3); CREATININE 0.97 mg/dl (0.61-1.24); TOTAL PROTEIN 6.7 g/dl (6.1-8.1)
[2016-08-16 06:26] LABS: CALCIUM 9.2 mg/dl (8.4-10.2)
[2016-08-16 06:31] LABS: T3 UPTAKE 38.3 % (23.5-40.5)
[2016-08-16 07:40] VITALS: BP 124/81; RESP 18
[2016-08-16] MEDS: DOXYCYCLINE 100 MG TAB PO SCH (08:09)
[2016-08-16] MEDS: SODIUM HYPOCHLORITE 0.125% 473 ML BTL IRR SCH (08:10)
--- NOTE | 2016-08-16 10:58 | PN ---
Date/Time of Note Date/Time of Note DATE: 08/16/16 TIME: 10:55 Assessment/Plan Lines/Catheters IV Catheter Type (from Nrs): Peripheral IV Ferrell in Place (from [facility]): No Assessment/Plan Chief Complaint/Hosp Course 1. Right groin abscess s/p I&D and LN bx 08/11 (necrotizing granulomatous lymphadenitis with central microabscesses) -abx -wound care -nutritional optimization -vit c -outpt follow up in wound clinic for wound care 2. BMI 29 -diet/lifestyle optimization encouraged -weight optimization encouraged 3. Fever curve improved 4. Dysuria without evidence of infection 5. Anemia, without evidence of bleeding -monitor Thank you, Problems: Subjective 24 Hr Interval Summary s/p LN bx (necrotizing granulomatous lymphadenitis with microabscesses) and I&D of right inguinal abscess 08/11. Groin pain improved. No fevers or chills. No cough. No sz. No rashes. No bello/dizzy/visual or neuro changes. No dysuria. No abdominal pain. Exam/Review of Systems Vital Signs Vitals Vital Signs Date Time Temp Pulse Resp B/P Pulse Ox O2 Delivery O2 Flow Rate FiO2 08/16/16 07:40 97.9 98 18 124/81 98 08/14/16 20:18 Room Air Intake and Output 08/15/16 08/15/16 08/16/16 15:00 23:00 07:00 Intake Total 500 ml 1630 ml 1350 ml Output Total 1300 ml 1500 ml Balance 500 ml 330 ml -150 ml Exam Free Text/Dictation Constitutional: alert, obese, oriented, No distress Psych: nl mood/affect, No anxiety Head: atraumatic, normocephalic Eyes: EOMI, PERRL, nl conjunctiva, No icteric ENMT: mucosa pink and moist, nl external ears & nose, nl lips & teeth Neck: non-tender, supple, No jvd, No masses Respiratory: normal air movement, No congested cough Cardiovascular: nl pulses, regular rate and rhythm, No edema Gastrointestinal: non-tender, other (Right groin wound, packed), soft, No distended, No rebound or guarding Musculoskeletal: nl extremities to inspection, No joint tenderness Extremities: normal pulses, No calf tenderness, No cyanosis Neurological: nl mental status, nl speech, nl strength Skin: nl turgor, as above Lymph: No nl lymph nodes (Right inguinal large lesion/LN), No nontender Results Free Text/Dictation Path: 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
[2016-08-16] MEDS: HYDROCODONE/APAP (5/325) TAB PO PRN (12:07)
--- NOTE | 2016-08-16 12:14 | CONS ---
Date/Time of Note Date/Time of Note DATE: 08/16/16 TIME: 12:13 Assessment/Plan Assessment/Plan Chief Complaint/Hosp Course SUBJECTIVE: The patient is alert, feels much better. No fevers PHYSICAL EXAMINATION: GENERAL: This is a well-nourished, well-developed, middle-aged man who is alert, in no distress. HEENT: Head atraumatic, normocephalic. Sclerae anicteric. Buccal mucosa pink. NECK: Supple. CHEST: Rise symmetrical. Breath sounds clear. HEART: S1, S2. ABDOMEN: Soft. Bowel sounds present. EXTREMITIES: Without cyanosis. ASSESSMENT: 1. Systemic inflammatory response syndrome with low-grade fevers==> resolving. 2. Right groin abscess, status post i&d===> CT-guided biopsy revealed no malignancy. PLAN: Remains stable, per dw Dr Marisela lei dc home on PO Augmentin for 5 more days [facility] staff Problems: Consultation Date/Type/Reason Admit Date/Time Aug 02, 2016 at 00:22 Initial Consult Date 08/04/16 Type of Consultation: ID Referring Provider: ANTONIO WONG Exam/Review of Systems Vital Signs Vitals Vital Signs Date Time Temp Pulse Resp B/P Pulse Ox O2 Delivery O2 Flow Rate FiO2 08/16/16 07:40 97.9 98 18 124/81 98 08/14/16 20:18 Room Air Intake and Output 08/15/16 08/15/16 08/16/16 15:00 23:00 07:00 Intake Total 500 ml 1630 ml 1350 ml Output Total 1300 ml 1500 ml Balance 500 ml 330 ml -150 ml Results Result Diagram: 08/16/16 0500 08/16/16 0500 Results 24 hrs Laboratory Tests Test 08/16/16 04:51 08/16/16 05:00 Free Thyroxine Index 3.45 Thyroxine (T4) 9.0 Triiodothyronine (T3) Uptake 38.3 White Blood Count 6.5 Red Blood Count 4.25 L Hemoglobin 11.7 L Hematocrit 35.9 L Mean Corpuscular Volume 84.5 Mean Corpuscular Hemoglobin 27.5 L Mean Corpuscular Hemoglobin Concent 32.6 Red Cell Distribution Width 12.2 Platelet Count 457 H Mean Platelet Volume 8.3 Neutrophils % 57.7 Lymphocytes % 26.6 Monocytes % 11.1 H Eosinophils % 3.5 Basophils % 0.8 Nucleated Red Blood Cells % 0.0 Neutrophils # 3.8 Lymphocytes # 1.7 Monocytes # 0.7 Eosinophils # 0.2 Basophils # 0.1 Nucleated Red Blood Cells # 0.0 Prothrombin Time 12.9 Prothrombin Time Ratio 1.0 INR International Normalized Ratio 0.97 Activated Partial Thromboplast Time 37.2 H Sodium Level 143 Potassium Level 4.2 Chloride Level 105 Carbon Dioxide Level 27 Anion Gap 15 Blood Urea Nitrogen 10 Creatinine 0.97 Glucose Level 101 Calcium Level 9.2 Total Bilirubin 0.1 L Direct Bilirubin 0.00 Indirect Bilirubin 0.1 Aspartate Amino Transf (AST/SGOT) 25 Alanine Aminotransferase (ALT/SGPT) 31 Alkaline Phosphatase 59 Total Protein 6.7 Albumin 3.3 Globulin 3.40 H Albumin/Globulin Ratio 0.97 Medications Medications Current Medications Sodium Chloride (NS) 1,000 ml @ 100 mls/hr Q10H IV Last administered on 01:41; Admin Dose 100 MLS/HR; Start 08/02/16 at 01:23 Ondansetron HCl (Zofran Inj) 4 mg Q6H PRN IV NAUSEA AND/OR VOMITING; Start at 01:30 Morphine Sulfate (morphine) 2 mg Q4H PRN IV SEVERE PAIN LEVEL 7-10 Last administered on 08/14/16 05:48; Admin Dose 2 MG; Start 08/02/16 at 01:30 Acetaminophen (Tylenol Tab) 650 mg Q6H PRN PO PAIN AND OR ELEVATED TEMP Last administered on 08/07/16 23:24; Admin Dose 650 MG; Start 08/03/16 at 11:00 Acetaminophen/ Hydrocodone Bitart ([place] (5/325)) 1 tab Q6H PRN PO MODERATE PAIN (4-6/10) Last administered on 08/16/16 12:07; Admin Dose 1 TAB; Start at 23:30 Sodium Hypochlorite ([place] (1/4 Strength)) 1 applic DAILY IRR Last administered on 08/16/16 08:10; Admin Dose 1 APPLIC; Start 08/12/16 at 09:00 Ciprofloxacin (Cipro) 500 mg BID@,18 PO Last administered on 08/16/16 05:35 ; Admin Dose 500 MG; Start 08/16/16 at 06:00; Stop 08/25/16 at 12:00 Doxycycline Hyclate (Vibramycin) 100 mg BID PO Last administered on 08/16/16t 08:09; Admin Dose 100 MG; Start 08/15/16 at 21:00 LUCAS FIGUEROA NP Aug 16, 2016 12:13
--- NOTE | 2016-08-16 14:39 | PDOCDIS ---
Discharge Instructions CONDITION Patient Condition: Good HOME CARE INSTRUCTIONS: Diet Instructions: Regular ACTIVITY: Activity Restrictions: No Restrictions FOLLOW UP/APPOINTMENTS Appointments F/U WITH A PCP IN 1-2 WEEKS ANTONIO WONG Aug 16, 2016 14:39
[2016-08-16] MEDS ORDERED: AMOX1TAB10 PO (14:41)
--- NOTE | 2016-08-17 04:23 | DS ---
DATE OF ADMISSION: 08/02/2016 DATE OF DISCHARGE: 08/16/2016 DISCHARGE DIAGNOSIS: Sepsis secondary to right groin abscess status post incision and drainage and antibiotics. CT-guided biopsy revealed no malignancy. Discharged with p.o. antibiotics. HOSPITAL COURSE: The patient is a 41-year-old male with no significant medical history. The patien t presents with a right inguinal mass. There was a question of whether it was an incarcerated ingui nal hernia. The patient had a CT scan that showed that it was not a hernia but possibly lymphoma. The patient had a CT-guided biopsy that showed that it is not malignant and that the mass is compati ble with benign reactive lymph node. AFP/GMS stains were negative for any organisms. There was nec rotizing granulomatous lymphadenitis and microabscess. The patient continued to have persistent sig ns of sepsis and persistence of fevers. ID consult was placed as once again no malignancy was ident ified. It was felt the patient likely has an abscess, and surgical consult was placed. The patient had an I and D of the right groin abscess and lymph node. The patient was continued on antibiotics . His signs of sepsis did resolve. The patient no longer had any fevers. As per recommendations o f ID and surgery, recommendation was to go home with p.o. Augmentin for 5 more days. On the day of discharge, the patient's vitals, labs, and physical exam were stable. He had no acute complaints, a nd his questions were answered. CONDITION ON DISCHARGE: Stable. DISPOSITION: To home. MEDICATIONS: The patient was given Augmentin 875/125 p.o. b.i.d. for 5 days. The patient has no re ported home medications. FOLLOWUP: The patient is to follow up with his PCP in 1 to 2 weeks. Greater than 30 minutes was spent coordinating discharge of patient. Dictated By: ANTONIO WONG MD BS/NTS Conf#: [id number] DID#: [id number]
== END 2016-08-16 18:35 | disposition home or self-care (01) | DRG 854 ==
LOC: E/R 20:36 → MS2 08-02 00:22
PROVIDERS: ADMIT Family Medicine; ATTEND Family Medicine
PROC: 07BH3ZX Excision of Right Inguinal Lymphatic, Percutaneous Approach, Diagnostic (ICD-10-PCS; 2016-08-03)
PROC: 07BH0ZX Excision of Right Inguinal Lymphatic, Open Approach, Diagnostic (ICD-10-PCS; 2016-08-11)
PROC: 0J9C0ZZ Drainage of Pelvic Region Subcutaneous Tissue and Fascia, Open Approach (ICD-10-PCS; principal; 2016-08-11 21:00)
DX: A41.9 Sepsis, unspecified organism (principal); L02.214 Cutaneous abscess of groin; D89.2 Hypergammaglobulinemia, unspecified; I88.8 Other nonspecific lymphadenitis; D64.9 Anemia, unspecified; R30.0 Dysuria; E66.9 Obesity, unspecified; Z68.29 Body mass index [BMI] 29.0-29.9, adult
CPT/HCPCS: 36415; 70553; 71250; 74176; 76942; 80048; 80053; 80202; 81003; 82565; 83036; 83615; 83690; 83735; 84100; 84436; 84443; 84479; 84520; 84560; 85025; 85610; 85651; 85730; 86038; 86480; 86592; 86703; 86704; 86709; 86803; 87040; 87070; 87086; 87340; 87591; 88104; 88305; 88307; 88313; 88341; 88342; 96374; 96375; J0330; J1100; J2175; J2250; J2270; J2405; J2543; J2710; J3010; J3370; J7030; J7040; J7050